=== PATIENT | female | born 1965 | race African-American/Black ===

== ENCOUNTER 2016-02-27 08:30 | Emergency (ER) | payer MEDICARE ==
[2016-02-27 09:13] LABS: #Basophils 0.2 thou/uL (0.0-0.2); #Eosinphils 0.5 thou/uL (0.0-0.7); #Lymphocytes 2.8 thou/uL (1.20-3.40); %Basophils 1.4 % (0.0-1.0); %Eosinophils 4.1 % (0.0-10.0); %Lymphocytes 22.4 % (21.0-51.0); %Monocytes 7.8 % (0.0-10.0); Hematocrit 47.3 % (36.0-47.0); Mean Platelet Volume 6.9 fL (7.4-10.4); Red Blood Cell (RBC) Count 4.75 mill/uL (4.20-5.40); White Blood Cell (WBC) Count 12.5 thou/uL (4.8-10.8)
[2016-02-27 09:35] LABS: Troponin I 0.025 ng/mL (< 0.028)
[2016-02-27 09:47] LABS: Prothrombin Time 17.7 SEC (12.0-14.7)
[2016-02-27 09:53] LABS: ALT (SGPT) 36 U/L (0-55); AST (SGOT) 35 U/L (5-34); Alkaline Phosphatase 59 U/L (40-150); Anion Gap 17 mmol/L (10-20); BUN (Urea Nitrogen) 13 mg/dL (9.8-20.1); Bilirubin, Total 0.6 mg/dL (0.2-1.2); Calc. Creatinine Clearance 0 mL/min (70-130); Calcium 10.3 mg/dL (7.8-10.44); Carbon Dioxide 25 mmol/L (22-29); Chloride 102 mmol/L (98-107); Estimated GFR-MDRD Greater than 90; Globulin 3.5 g/dL (2.4-3.5); Magnesium 2.1 mg/dL (1.6-2.6); Protein, Total 7.8 g/dL (6.0-8.3)
[2016-02-27 09:56] LABS: Digoxin 1.38 ng/mL (0.8-2.0)
--- NOTE | 2016-02-27 10:00 | RAD ---
PORTABLE AP CHEST XRAY: DATE: 02/27/16. HISTORY: Cough. FINDINGS: Compared to the study on 02/15/16. Multilead left subclavian AICD device remains in place. Postsurgical changes related to median ster notomy and cardiac valve replacement are noted. Cardiac silhouette remains enlarged and there is rodriguez boptimal evaluation of the left lung base due to enlargement of the cardiac silhouette and under-pen etrated technique of the study. Pulmonary vasculature is within normal limits and the visualized shaye ngs are clear. There has been no interval change from the prior exam. IMPRESSION: 1. Suboptimal evaluation of the left lung base, but there is no definite acute cardiopulmonary proc ess identified. 2. Cardiomegaly. POS: DAMI
[2016-02-27] MEDS ORDERED: cefTRIAXone\\ROCEPHIN 1 GM VIAL ONE (10:51)
--- NOTE | 2016-02-27 10:51 | ERRECORD ---
[facility] EMERGENCY RECORD HPI COUGH (08:45 SHAN) CHIEF COMPLAINT: Patient presents for evaluation of cough. HISTORIAN: History provided by patient, States was in ER around [place] with similar problem. Has gotten worse. LOCATION: also with vague chest pain. SEVERITY: Maximum severity of symptoms moderate, Currently symptoms are moderate. ASSOCIATED WITH: Associated with chest pain. EXACERBATED BY: Patient's condition exacerbated by deep breaths. RELIEVED BY: Patient's condition relieved by nothing. ROS (08:47 SHAN) CONSTITUTIONAL: Negative constitutional review of systems. EYES: Negative eye review of systems. ENT: Negative ears, nose, throat review of systems. CARDIOVASCULAR: Historian reports chest pain, More related to respiratory infection per patient. RESPIRATORY: Historian reports cough. GI: Negative gastrointestinal review of systems. MUSCULOSKELETAL: Negative musculoskeletal review of systems. SKIN: Negative skin review of systems. NEUROLOGIC: Negative neurologic review of systems. ENDOCRINE: Negative endocrine review of systems. NOTES: All systems reviewed, negative except as described above. PAST MEDICAL HISTORY MEDICAL HISTORY: Flu vaccine up to date, Past medical history includes history of diabetes, Type II, Past medical history includes history of hyperlipidemia, history of hypertension. Flu vaccine up to date, , Past medical history includes cardiac history, treated with an AICD, Past medical history includes cardiac history, coronary artery disease, Treated with a pacemaker,includes history of diabetes, Type II, history of hypertension, which has been treated, pulmonary disease, emphysema, COPD, includes cardiac history, congestive heart failure, arrhythmia, atrial fibrillation, Treated with stent placement. cardiac cath in september 2014. mitral and aortic valve replacement. rheumatic fever when pt was 12 years old. "frozen shoulder"-right. (08:48 IHAC) Notes: tank terminal gauger copd, s/p two heart valve replacements. (08:49 SHAN) FEMALE SURGICAL HISTORY: states had pacemaker placed in june 2013,., Surgical history of valve replacement, aortic with artificial valve, of coronary artery bypass graft surgery, one vessel, Date of surgery 1997, of appendectomy.. (08:48 IHAC) s/p aortic and mitral valve replacements; has pacemaker/defibrillator. (08:49 SHAN) PSYCHIATRIC HISTORY: Psychiatric history includes, anxiety, Psychiatric history includes, depression. (08:48 IHAC) &a-1R&a+25V*p+0X*[id number]*c202B*c15G*c2P*p-0X&a-25V&a+1R Name: Ana Hickman : 1965 F51 MedRec: [id number] AcctNum: [id number] Prepared: Lizzy Feb 27, 2016 18:26 by Interface Page 1 of 4 pMD [facility] EMERGENCY RECORD SOCIAL HISTORY: Patient denies alcohol use, Patient has no smoking history, Lives at home, alone, Patient drinks socially, rarely, Patient is a former tobacco user, smoked cigarettes, Patient quit smoking less than 10 years ago. Patient denies drug use. (08:48 IHAC) NOTES: Nursing records reviewed, Agree with nursing records. (08:49 [facility]) KNOWN ALLERGIES pneumococcal 23-valent polysacchari (Unconfirmed) pneumococcal vaccine (Unconfirmed) tetanus immune globulin: - swelling traMADol: Severity: Mild, - "GETS SICK" trazodone (Unconfirmed) CURRENT MEDICATIONS (08:43 IHAC) Mucinex: TABLET,EXTENDED RELEASE BIPHASIC 12 HR : Strength - 600 mg : ORAL Patient Dose: 1 tab(s) Oral 2 times a day. levothyroxine: TABLET : Strength - 25 mcg : ORAL Patient Dose: 1 tab(s) Oral once a day. simvastatin: TABLET : Strength - 40 mg : ORAL Patient Dose: 1 tab(s) Oral once a day (at bedtime). furosemide: TABLET : Strength - 40 mg : ORAL Patient Dose: 1 tab(s) Oral once a day. digoxin: TABLET : Strength - 250 mcg : ORAL Patient Dose: 1 tab(s) Oral once a day. warfarin: TABLET : Strength - 5 mg : ORAL Patient Dose: Oral.1 TAB DAILY, EXCEPT WED/ 1.5 TABS. metFORMIN: TABLET : Strength - 500 mg : ORAL Patient Dose: 2 tab(s) Oral 2 times a day. aspirin: TABLET, DELAYED RELEASE (ENTERIC COATED) : Strength - 81 mg : ORAL Patient Dose: 1 tab(s) Oral once a day. albuterol sulfate: VIAL, NEBULIZER (ML) : Strength - 2.5 mg/3 mL (0.083 %) : INHALATION Patient Dose: 1 inhalation Nebulize every 8 hours. potassium chloride: CAPSULE, EXTENDED RELEASE : Strength - 10 mEq : ORAL Patient Dose: 2 tab(s) Oral once a day. lisinopril: TABLET : Strength - 5 mg : ORAL Patient Dose: 1 tab(s) Oral once a day. &a-1R&a+25V*p+0X*[id number]*c202B*c15G*c2P*p-0X&a-25V&a+1R Name: Ana Hickman : 1965 F51 MedRec: [id number] AcctNum: [id number] Prepared: [facility] Feb 27, 2016 18:26 by Interface Page 2 of 4 pMD [facility] EMERGENCY RECORD Symbicort: HFA AEROSOL WITH ADAPTER (GRAM) : Strength - 160 mcg-4.5 mcg/actuation : INHALATION Patient Dose: 2 puff(s) Inhaler 2 times a day. gabapentin: CAPSULE : Strength - 300 mg : ORAL Patient Dose: 1-3 cap(s) Oral once a day (at bedtime).prn. FE C Plus: TABLET : Strength - 100 mg-250 mg-25 mcg-1 mg : ORAL Patient Dose: 1 tab(s) Oral once a day. predniSONE: TABLET : Strength - 20 mg : ORAL Patient Dose: 2 tab(s) Oral once a day (in the morning). VITAL SIGNS VITAL SIGNS: BP: 128/79, Pulse: 94, Resp: 24, Temp: 98.5 (Oral), Pain: 2, O2 sat: 95 on Room Air, Time: 02/27/2016 08:35. (08:35 IHAC) BP: 129/79, Pulse: 94, O2 sat: 96, Time: 02/27/2016 09:00. (09:00 BDON) BP: 106/86, Pulse: 84, Pain: 2, O2 sat: 97, Time: 02/27/2016 09:30. (09:30 BDON) BP: 119/67, Pulse: 96, O2 sat: 97, Time: 02/27/2016 10:30. (10:30 BDON) BP: 100/45, Pulse: 90, O2 sat: 93, Time: 02/27/2016 11:27. (11:27 BDON) PHYSICAL EXAM (08:48 SHAN) CONSTITUTIONAL: Vital Signs Reviewed. EYES: Eye exam included findings of eyelids normal to inspection, Pupils equally round and reactive to light, Extraocular muscles intact. ENT: ENT exam normal. NECK: Neck exam normal, Neck exam included findings of normal range of motion, Trachea midline. RESPIRATORY CHEST: Wheezing present, scattered, Rhonchi present, diffusely. CARDIOVASCULAR: Cardiovascular exam included findings of heart rate regular rate and rhythm, Defibrillator in Place, has had aortic and mitral valves replaced as a teenager. ABDOMEN FEMALE: Abdominal exam normal. BACK: Back exam normal. UPPER EXTREMITY: Upper extremity exam normal. NEURO: Neuro exam normal. SKIN: Skin exam normal. PSYCHIATRIC: Psychiatric exam normal. MEDICATION ADMINISTRATION SUMMARY Drug Name: Rocephin intravenous, Dose Ordered: 1 g, Route: IV Push, Status: Given, Time: 10:59 02/27/2016, Drug Name: albuterol sulfate inhalation, Dose Ordered: 2.5 mg, Route: Nebulize, Status: Given, Time: 08:54 02/27/2016, Drug Name: ipratropium 0.5 mg by nebulizer, Dose Ordered: * , Route: &a-1R&a+25V*p+0X*[id number]*c202B*c15G*c2P*p-0X&a-25V&a+1R Name: Ana Hickman : 1965 F51 MedRec: [id number] AcctNum: [id number] Prepared: [facility] Feb 27, 2016 18:26 by Interface Page 3 of 4 pMD [facility] EMERGENCY RECORD Nebulize, Status: Given, Time: 08:54 02/27/2016, Detailed record available in Medication Service section. DOCTOR NOTES (10:37 SHAN) TEXT: Patient requested admission; discussed with pcp; he didn't feel there were enough issues for justifications yet. Discussed details with patient and will adjust meds, refills, and antibiotics. Lung sounds much better with treatment. PATIENT STATUS: Patient has improved since arrival to emergency department. PATIENT PLAN: The patient will be discharged, The patient will follow up with primary care physician. DATA REVIEWED: Lab data reviewed, Xray data reviewed, Reviewed EKG. PROBLEM LIST No recorded problems DIAGNOSIS (10:40 SHAN) FINAL: PRIMARY: copd exacerbation, ADDITIONAL: chronic coumadin therapy, hx of aortic and mitral valve replacement. PRESCRIPTION Levaquin oral: TABLET : 500 mg : ORAL : Quantity: 1 Unit: tab(s) Route: ORAL Schedule: ONCE Dispense: 10 Unit: tab(s) May substitute. Refills: No Refills POTENTIAL SEVERE INTERACTION: warfarin. (10:42 SHAN) NOTES: No Refills. (10:42 SHAN) albuterol sulfate inhalation: VIAL, NEBULIZER (EA) : 2.5 mg/0.5 mL : INHALATION : Quantity: 1 Unit: amp(s) Route: INHALATION Schedule: 4 times a day Dispense: 120 Unit: amp(s) May substitute. Refills: No Refills . (10:43 SHAN) NOTES: No Refills. (10:43 SHAN) ipratropium bromide inhalation: SOLUTION, NON-ORAL : 0.2 mg/mL (0.02 %) : INHALATION : Quantity: 0.5 Unit: mg Route: INHALATION Schedule: 4 times a day Dispense: 120 Unit: amp(s) May substitute. Refills: No Refills . (10:44 SHAN) NOTES: No Refills. (10:44 SHAN) DISPOSITION PATIENT: Disposition Type: Discharge, Disposition: *Discharge Home. (10:40 EMELIA) Patient left the department. (11:42 DIANA) Ramirez: DIANA=FILEMON Oliveira, Monserrat KOVACS=Dafne Rogers=MD Brandon, Brayan &a-1R&a+25V*p+0X*[id number]*c202B*c15G*c2P*p-0X&a-25V&a+1R Name: Ana Hickman Emerita : 1965 F51 MedRec: [id number] AcctNum: [id number] Prepared: Lizzy Feb 27, 2016 18:26 by Interface Page 4 of 4 pMD MTDD
--- NOTE | 2016-02-27 10:51 | PICIS ---
[facility] EMERGENCY RECORD TRIAGE (08:39 IHAC) TRIAGE NOTES: C/O RESP.DIFF AND CHEST DISCOMFORT. (08:39 IHAC) PATIENT: NAME: Ana Hickman, AGE: 51, GENDER: female, : Sat 1965, TIME OF GREET: Lizzy Feb 27, 2016 08:31, PREFERRED LANGUAGE: Lithuanian, ETHNICITY: Not or , ECODE BILLING MAP: [facility], SSN: [id number], Zip Code: [address], KG WEIGHT: 100.70, PHONE: , , , PERSON ID: [id number], PCP: MD Lovett Jacques. (08:39 IHAC) COMPLAINT: COUGH,VOMITING,FEVER,CHEST PAIN. (08:39 IHAC) ADMISSION: URGENCY: 2 Emergent, ADMISSION SOURCE: Home, TRANSPORT: CAR, BED: ER -02. (08:39 IHAC) ASSESSMENT: Assessment: c/o diff. breathing and chest discomfort, Symptoms began few days ago. (08:48 IHAC) PAIN: Patient complains of pain described as, aching, Location chest, Pain is intermittent, Aggravating factors:, Aggravating factors include weather. (08:48 IHAC) SIRS SCORING: Heart Rate 55-109 (0), Temp range 96.8-101.1 (0), respiratory rate 12-24 (0), Mental Status altered: no (0). (08:48 IHAC) PROVIDERS: TRIAGE NURSE: Dafne Rogers. (08:39 IHAC) VITAL SIGNS: BP 128/79, Pulse 94, Resp 24, Temp 98.5, (Oral), Pain 2, O2 Sat 95, on Room Air, Time 02/27/2016 08:35. (08:35 IHAC) PREVIOUS VISIT ALLERGIES: tetanus immune globulin, traMADol. (08:39 IHAC) tetanus immune globulin, traMADol. (08:48 IHAC) KNOWN ALLERGIES pneumococcal 23-valent polysacchari (Unconfirmed) pneumococcal vaccine (Unconfirmed) tetanus immune globulin: - swelling traMADol: Severity: Mild, - "GETS SICK" trazodone (Unconfirmed) CURRENT MEDICATIONS (08:43 IHAC) Mucinex: TABLET,EXTENDED RELEASE BIPHASIC 12 HR : Strength - 600 mg : ORAL Patient Dose: 1 tab(s) Oral 2 times a day. levothyroxine: TABLET : Strength - 25 mcg : ORAL Patient Dose: 1 tab(s) Oral once a day. simvastatin: TABLET : Strength - 40 mg : ORAL Patient Dose: 1 tab(s) Oral once a day (at bedtime). furosemide: TABLET : Strength - 40 mg : ORAL Patient Dose: 1 tab(s) Oral once a day. digoxin: &a-1R&a+25V*p+0X*z5597K*c202B*c15G*c2P*p-0X&a-25V&a+1R Name: Ana Hickman : 1965 F51 MedRec: [id number] AcctNum: [id number] Prepared: [facility] Feb 27, 2016 18:32 by Interface Page 1 of 15 pMD [facility] EMERGENCY RECORD TABLET : Strength - 250 mcg : ORAL Patient Dose: 1 tab(s) Oral once a day. warfarin: TABLET : Strength - 5 mg : ORAL Patient Dose: Oral.1 TAB DAILY, EXCEPT / 1.5 TABS. metFORMIN: TABLET : Strength - 500 mg : ORAL Patient Dose: 2 tab(s) Oral 2 times a day. aspirin: TABLET, DELAYED RELEASE (ENTERIC COATED) : Strength - 81 mg : ORAL Patient Dose: 1 tab(s) Oral once a day. albuterol sulfate: VIAL, NEBULIZER (ML) : Strength - 2.5 mg/3 mL (0.083 %) : INHALATION Patient Dose: 1 inhalation Nebulize every 8 hours. potassium chloride: CAPSULE, EXTENDED RELEASE : Strength - 10 mEq : ORAL Patient Dose: 2 tab(s) Oral once a day. lisinopril: TABLET : Strength - 5 mg : ORAL Patient Dose: 1 tab(s) Oral once a day. Symbicort: HFA AEROSOL WITH ADAPTER (GRAM) : Strength - 160 mcg-4.5 mcg/actuation : INHALATION Patient Dose: 2 puff(s) Inhaler 2 times a day. gabapentin: CAPSULE : Strength - 300 mg : ORAL Patient Dose: 1-3 cap(s) Oral once a day (at bedtime).prn. FE C Plus: TABLET : Strength - 100 mg-250 mg-25 mcg-1 mg : ORAL Patient Dose: 1 tab(s) Oral once a day. predniSONE: TABLET : Strength - 20 mg : ORAL Patient Dose: 2 tab(s) Oral once a day (in the morning). VITAL SIGNS VITAL SIGNS: BP: 128/79, Pulse: 94, Resp: 24, Temp: 98.5 (Oral), Pain: 2, O2 sat: 95 on Room Air, Time: 02/27/2016 08:35. (08:35 IHAC) BP: 129/79, Pulse: 94, O2 sat: 96, Time: 02/27/2016 09:00. (09:00 BDON) BP: 106/86, Pulse: 84, Pain: 2, O2 sat: 97, Time: 02/27/2016 09:30. (09:30 BDON) BP: 119/67, Pulse: 96, O2 sat: 97, Time: 02/27/2016 10:30. (10:30 BDON) BP: 100/45, Pulse: 90, O2 sat: 93, Time: 02/27/2016 11:27. (11:27 BDON) NURSING ASSESSMENT: RESPIRATORY /CHEST (08:40 IHAC) CONSTITUTIONAL: Complex assessment performed, Patient arrives ambulatory, Gait steady, History obtained from patient, Patient appears, anxious, Patient cooperative, Patient alert, Oriented to person, place and time, Skin warm, Skin dry, Skin normal in color, Mucous membranes pink, Mucous membranes moist, Patient is &a-1R&a+25V*p+0X*s5385N*c202B*c15G*c2P*p-0X&a-25V&a+1R Name: Ana Hickman : 1965 F51 MedRec: [id number] AcctNum: [id number] Prepared: Lizzy Feb 27, 2016 18:32 by Interface Page 2 of 15 pMD [facility] EMERGENCY RECORD well-groomed, Patient complains of RESP.DIFF. CHEST DISCOMFORT. PAIN: aching pain, midsternal, on a scale 0-10 patient rates pain as 2, WORST WHEN COUGHING, Pain exacerbated by. RESPIRATORY/CHEST: Lungs auscultated, Breath sounds with rales, to bilateral upper lobes. SAFETY: Side rails up, Cart/Stretcher in lowest position, Family at bedside, Call light within reach, Hospital ID band on. NURSING PROCEDURE: BEDSIDE RADIOLOGY (:47 CCRI) BEDSIDE RADIOLOGY: Bedside radiology performed by CC, Portable chest x-ray performed. NURSING PROCEDURE: DISCHARGE NOTE (11:38 BDON) DISCHARGE: Patient discharged to home, ambulating without assistance, Summary of Care printed/ provided, Patient requested and was provided an electronic copy of Discharge Instructions, Transition record given to patient, Discharge instructions given to patient, Simple or moderate discharge teaching performed, Prescriptions given and instructions on side effects given, Medication reconciliation form given, Above person(s) verbalized understanding of discharge instructions and follow-up care, Patient treated and evaluated by physician, Notes: no reaction to IV antiabiotic. NURSING PROCEDURE: EKG CHART (:47 MSPE) EKG: EKG indicated for complaint of chest pain, EKG indicated for cough, 12 lead EKG performed on the left chest. FOLLOW-UP: After procedure, EKG for interpretation given to Dr. Taylor. NURSING PROCEDURE: IV PATIENT IDENITIFIER: Patient actively involved in identification process, Patient's identity verified by patient stating name, Patient's identity verified by patient stating date. (09:09 IHAC) Patient actively involved in identification process. (09:05 BDON) IV SITE 1: IV established, Saline lock established, Notes: 22G IV. ACCESSED TO RIGHT ANT. F/A X1 ATTEMPT BY MARGI COLBERT. (09:09 IHAC) IV therapy indicated for hydration, IV therapy indicated for medication administration, IV established, to the right wrist, using a 22 gauge catheter, in one attempt, Labs drawn at time of placement, labeled in the presence of the patient and sent to lab, Blood cultures drawn at time of placement, labeled in the presence of the patient and sent to lab. (09:05 BDON) FOLLOW-UP SITE 1: After procedure, IV secured by. (09:09 IHAC) IV discontinued, due to patient being discharged, catheter intact. (11:36 BDON) SAFETY: Side rails up, Cart/Stretcher in lowest position, Family at bedside, Call light within reach, Hospital ID band on. (09:09 &a-1R&a+25V*p+0X*u9456J*c202B*c15G*c2P*p-0X&a-25V&a+1R Name: Ana Hickman : 1965 F51 MedRec: [id number] AcctNum: [id number] Prepared: [facility] Feb 27, 2016 18:32 by Interface Page 3 of 15 pMD [facility] EMERGENCY RECORD IHAC) NURSING PROCEDURE: LAB DRAW (09:10 IHAC) PATIENT IDENTIFIER: Patient actively involved in identification process, Patient's identity verified by patient stating name, Patient's identity verified by patient stating date. LAB DRAW: Lab draw indicated for obtaining specimens for evaluation, Initial lab draw performed, Notes: LAB DRAWN PER MARGI COLBERT. NURSING PROCEDURE: NURSE NOTES NURSES NOTES: Assistance offered to patient, Warm blanket given to patient. (09:00 BDON) Assistance offered to patient. (10:35 BDON) Assistance offered to patient, Notes: Aware that Dr. John does not want her to be admitted. (10:52 BDON) NURSING PROCEDURE: RESPIRATORY INTERVENTIONS (08:54 IHAC) PATIENT IDENTIFIER: Patient actively involved in identification process, Patient's identity verified by patient stating name, Patient's identity verified by patient stating date. RESPIRATORY INTERVENTIONS: Respiratory interventions indicated for sputum collection, Pre-intervention breath sounds with rales, to bilateral lower lobes, Pre-intervention breath sounds with wheezing, audibly, Pre-intervention oxygen saturation 96%, Patient given ALBUTEROL, 1, Single dose nebulizer, Dose: DUONEB. FOLLOW-UP: After procedure, oxygen saturation 96%, on room air, After procedure, breath sounds diminished. SAFETY: Side rails up, Cart/Stretcher in lowest position, Family at bedside, Call light within reach, Hospital ID band on. ORDER DETAILS Order Name: B type Natriuretic Peptide, Status: Active, Time: 08:43 02/27/2016, User: EMELIA, - Ordered for: MD Taylor Stanley, - Entered by: MD Taylor Stanley - [facility] Feb 27, 2016 08:43, - Quantity: 1, Order Name: CHURN DRILLER ED, Status: Done, Time: 08:49 02/27/2016, User: REG, - Ordered for: MD Taylor Stanley, - Entered by: MD Taylor Stanley - [facility] Feb 27, 2016 08:43, - Quantity: 1, Order Name: Cardiac Profile w/CKMB & Troponin - I, Status: Active, Time: 08:43 02/27/2016, User: EMELIA, - Ordered for: MD Taylor Stanley, - Entered by: MD Taylor Stanley - [facility] Feb 27, 2016 08:43, - Quantity: 1, Order Name: CBC with Differential, Status: Active, Time: 08:43 &a-1R&a+25V*p+0X*r5350F*c202B*c15G*c2P*p-0X&a-25V&a+1R Name: Ana Hickman : 1965 F51 MedRec: [id number] AcctNum: [id number] Prepared: WedFeb 27, 2016 18:32 by Interface Page 4 of 15 pMD [facility] EMERGENCY RECORD 02/27/2016, User: EMELIA, - Ordered for: MD Taylor Stanley, - Entered by: MD Taylor Stanley - [facility] Feb 27, 2016 08:43, - Quantity: 1, Order Name: Comprehensive Metabolic Panel, Status: Active, Time: 08:43 02/27/2016, User: EMELIA, - Ordered for: MD Taylor Stanley, - Entered by: MD Taylor Stanley - [facility] Feb 27, 2016 08:43, - Quantity: 1, Order Name: Culture & GS, Respiratory, Status: Active, Time: 08:57 02/27/2016, User: EMELIA, - Ordered for: MD Taylor Stanley, - Entered by: MD Taylor Stanley - [facility] Feb 27, 2016 08:57, - Quantity: 1, Order Name: Culture, Blood, Status: Active, Time: 08:55 02/27/2016, User: EMELIA, - Ordered for: MD Taylor Stanley, - Entered by: MD Taylor Stanley - [facility] Feb 27, 2016 08:55, - Quantity: 1, Order Name: Digoxin, Status: Active, Time: 08:57 02/27/2016, User: EMELIA, - Ordered for: MD Taylor Stanley, - Entered by: MD Taylor Stanley - [facility] Feb 27, 2016 08:57, - Quantity: 1, Order Name: EKG 12 Lead in Emergency Room, Status: Active, Time: 08:43 02/27/2016, User: EMELIA, - Ordered for: MD Taylor Stanley, - Entered by: MD Taylor Stanley - [facility] Feb 27, 2016 08:43, - Quantity: 1, Order Name: ERRT * Smal Vol Neb Initial Trmt, Status: Active, Time: 09:29 02/27/2016, User: IHAC, - Ordered for: MD Taylor Stanley, - Entered by: Dafne Rogers - [facility] Feb 27, 2016 09:29, - Quantity: 1, Order Name: ERRT Pulse Oximeter ER, Status: Active, Time: 08:43 02/27/2016, User: EMELIA, - Ordered for: MD Taylor Stanley, - Entered by: MD Taylor Stanley - [facility] Feb 27, 2016 08:43, - Quantity: 1, Order Name: Magnesium, Status: Active, Time: 08:58 02/27/2016, User: EMELIA, - Ordered for: MD Taylor Stanley, - Entered by: MD Taylor Stanley - [facility] Feb 27, 2016 08:58, - Quantity: 1, Order Name: Protime with INR, Status: Active, Time: 08:43 02/27/2016, User: EMELIA, - Ordered for: MD Taylor Stanley, - Entered by: MD Taylor Stanley - [facility] Feb 27, 2016 08:43, - Quantity: 1, Order Name: SALINE LOCK, Status: Done, Time: 09:09 02/27/2016, User: &a-1R&a+25V*p+0X*v0036C*c202B*c15G*c2P*p-0X&a-25V&a+1R Name: Ana Hickman : 1965 F51 MedRec: [id number] AcctNum: [id number] Prepared: WedFeb 27, 2016 18:32 by Interface Page 5 of 15 pMD [facility] EMERGENCY RECORD BDON, - Ordered for: MD Taylor Stanley, - Entered by: MD Taylor Stanley - [facility] Feb 27, 2016 08:43, - Quantity: 1, Order Name: Urine Microscopic ONLY, Status: Active, Time: 09:18 02/27/2016, User: EMELIA, - Ordered for: MD Taylor Stanley, - Entered by: MD Taylor Stanley [facility] Feb 27, 2016 09:18, - Quantity: 1, Order Name: XR Chest 1 View Portable, Status: Active, Time: 08:43 02/27/2016, User: EMELIA, - Ordered for: MD Taylor Stanley, - Entered by: MD Taylor Stanley [facility] Feb 27, 2016 08:43, - Quantity: 1. MEDICATION ADMINISTRATION SUMMARY Drug Name: Rocephin intravenous, Dose Ordered: 1 g, Route: IV Push, Status: Given, Time: 10:59 02/27/2016, Drug Name: albuterol sulfate inhalation, Dose Ordered: 2.5 mg, Route: Nebulize, Status: Given, Time: 08:54 02/27/2016, Drug Name: ipratropium 0.5 mg by nebulizer, Dose Ordered: * , Route: Nebulize, Status: Given, Time: 08:54 02/27/2016, Detailed record available in Medication Service section. MEDICATION SERVICE albuterol sulfate inhalation: Order: albuterol sulfate inhalation (albuterol sulfate) - Dose: 2.5 mg : Nebulize Schedule: Now Ordered by: Brayan Taylor MD Entered by: Brayan Taylor MD [facility] Feb 27, 2016 08:43 , Acknowledged by: Dafne Rogers [facility] Feb 27, 2016 08:49 Documented as given by: Dafne Rogers Lizzy Feb 27, 2016 08:54 Patient, Medication, Dose, Route and Time verified prior to administration. Amount given: 2.5mg, Amount wasted: 0, With oxygen, Correct patient, time, route, dose and medication confirmed prior to administration, Patient advised of actions and side-effects prior to administration, Allergies confirmed and medications reviewed prior to administration, Patient in position of comfort, Side rails up, Cart in lowest position. ipratropium 0.5 mg by nebulizer: Free Text order: ipratropium 0.5 mg by nebulizer : : Nebulize Ordered by: Brayan Taylor MD Entered by: Brayan Taylor MD WedFeb 27, 2016 08:44 , Acknowledged by: Dafne Rogers WedFeb 27, 2016 08:48 Documented as given by: Dafne Rogers WedFeb 27, 2016 08:54 Patient, Medication, Dose, Route and Time verified prior to administration. Amount given: .5, Amount wasted: 0, With oxygen, Correct patient, &a-1R&a+25V*p+0X*y1575V*c202B*c15G*c2P*p-0X&a-25V&a+1R Name: Ana Hickman : 1965 F51 MedRec: [id number] AcctNum: [id number] Prepared: WedFeb 27, 2016 18:32 by Interface Page 6 of 15 pMD [facility] EMERGENCY RECORD time, route, dose and medication confirmed prior to administration, Patient advised of actions and side-effects prior to administration, Allergies confirmed and medications reviewed prior to administration, Patient in position of comfort, Side rails up, Cart in lowest position, Family at bedside. Rocephin intravenous: Order: Rocephin intravenous (ceftriaxone sodium) - Dose: 1 g : IV Push Schedule: Now Ordered by: Brayan Taylor MD Entered by: Brayan Taylor MD WedFeb 27, 2016 10:37 , Acknowledged by: Margi Oliveira RN Lizzy Feb 27, 2016 10:50 Documented as given by: Margi Oliveira RN Lizzy Feb 27, 2016 10:59 Patient, Medication, Dose, Route and Time verified prior to administration. IV SITE #1 IVPB or drip, Catheter placement confirmed via flush prior to administration, IV site without signs or symptoms of infiltration during medication administration, No swelling during administration, No drainage during administration, IV flushed after administration, Correct patient, time, route, dose and medication confirmed prior to administration, Patient advised of actions and side-effects prior to administration, Allergies confirmed and medications reviewed prior to administration. : Follow Up : No signs or symptoms of allergic reaction noted, _IV SITE #1:_, Medication infusion discontinued, on WedFeb 27, 2016 11:23, 25 minutes, . (11:28 BDON) HPI COUGH (08:45 SHAN) CHIEF COMPLAINT: Patient presents for evaluation of cough. HISTORIAN: History provided by patient, States was in ER around [place] with similar problem. Has gotten worse. LOCATION: also with vague chest pain. SEVERITY: Maximum severity of symptoms moderate, Currently symptoms are moderate. ASSOCIATED WITH: Associated with chest pain. EXACERBATED BY: Patient's condition exacerbated by deep breaths. RELIEVED BY: Patient's condition relieved by nothing. ROS (08:47 SHAN) CONSTITUTIONAL: Negative constitutional review of systems. EYES: Negative eye review of systems. ENT: Negative ears, nose, throat review of systems. CARDIOVASCULAR: Historian reports chest pain, More related to respiratory infection per patient. RESPIRATORY: Historian reports cough. GI: Negative gastrointestinal review of systems. MUSCULOSKELETAL: Negative musculoskeletal review of systems. SKIN: Negative skin review of systems. NEUROLOGIC: Negative neurologic review of systems. ENDOCRINE: Negative endocrine review of systems. &a-1R&a+25V*p+0X*i2699F*c202B*c15G*c2P*p-0X&a-25V&a+1R Name: Ana Hickman : 1965 F51 MedRec: [id number] AcctNum: [id number] Prepared: [facility] Feb 27, 2016 18:32 by Interface Page 7 of 15 pMD [facility] EMERGENCY RECORD NOTES: All systems reviewed, negative except as described above. PAST MEDICAL HISTORY MEDICAL HISTORY: Flu vaccine up to date, Past medical history includes history of diabetes, Type II, Past medical history includes history of hyperlipidemia, history of hypertension. Flu vaccine up to date, , Past medical history includes cardiac history, treated with an AICD, Past medical history includes cardiac history, coronary artery disease, Treated with a pacemaker,includes history of diabetes, Type II, history of hypertension, which has been treated, pulmonary disease, emphysema, COPD, includes cardiac history, congestive heart failure, arrhythmia, atrial fibrillation, Treated with stent placement. cardiac cath in september 2014. mitral and aortic valve replacement. rheumatic fever when pt was 12 years old. "frozen shoulder"-right. (08:48 IHAC) Notes: rn long term care copd, s/p two heart valve replacements. (08:49 SHAN) FEMALE SURGICAL HISTORY: states had pacemaker placed in june 2013,., Surgical history of valve replacement, aortic with artificial valve, of coronary artery bypass graft surgery, one vessel, Date of surgery 1997, of appendectomy.. (08:48 IHAC) s/p aortic and mitral valve replacements; has pacemaker/defibrillator. (08:49 SHAN) PSYCHIATRIC HISTORY: Psychiatric history includes, anxiety, Psychiatric history includes, depression. (08:48 IHAC) SOCIAL HISTORY: Patient denies alcohol use, Patient has no smoking history, Lives at home, alone, Patient drinks socially, rarely, Patient is a former tobacco user, smoked cigarettes, Patient quit smoking less than 10 years ago. Patient denies drug use. (08:48 IHAC) NOTES: Nursing records reviewed, Agree with nursing records. (08:49 SHAN) PHYSICAL EXAM (08:48 SHAN) CONSTITUTIONAL: Vital Signs Reviewed. EYES: Eye exam included findings of eyelids normal to inspection, Pupils equally round and reactive to light, Extraocular muscles intact. ENT: ENT exam normal. NECK: Neck exam normal, Neck exam included findings of normal range of motion, Trachea midline. RESPIRATORY CHEST: Wheezing present, scattered, Rhonchi present, diffusely. CARDIOVASCULAR: Cardiovascular exam included findings of heart rate regular rate and rhythm, Defibrillator in Place, has had aortic and mitral valves replaced as a teenager. ABDOMEN FEMALE: Abdominal exam normal. BACK: Back exam normal. UPPER EXTREMITY: Upper extremity exam normal. &a-1R&a+25V*p+0X*n5348P*c202B*c15G*c2P*p-0X&a-25V&a+1R Name: Ana Hickman : 1965 F51 MedRec: [id number] AcctNum: [id number] Prepared: WedFeb 27, 2016 18:32 by Interface Page 8 of 15 pMD [facility] EMERGENCY RECORD NEURO: Neuro exam normal. SKIN: Skin exam normal. PSYCHIATRIC: Psychiatric exam normal. EVENTS TRANSFER: Triage to Emergency Emergency Room -02. (WedFeb 27, 2016 08:39 IHAC) Removed from Emergency Emergency Room -02. (11:42 BDON) DOCTOR NOTES (10:37 SHAN) TEXT: Patient requested admission; discussed with pcp; he didn't feel there were enough issues for justifications yet. Discussed details with patient and will adjust meds, refills, and antibiotics. Lung sounds much better with treatment. PATIENT STATUS: Patient has improved since arrival to emergency department. PATIENT PLAN: The patient will be discharged, The patient will follow up with primary care physician. DATA REVIEWED: Lab data reviewed, Xray data reviewed, Reviewed EKG. PROBLEM LIST No recorded problems DIAGNOSIS (10:40 SHAN) FINAL: PRIMARY: copd exacerbation, ADDITIONAL: chronic coumadin therapy, hx of aortic and mitral valve replacement. DISPOSITION PATIENT: Disposition Type: Discharge, Disposition: *Discharge Home. (:40 SHAN) Patient left the department. (11:42 BDON) INSTRUCTION (:46 SHAN) DISCHARGE: COPD FLARE. FOLLOWUP: MD Bony, Ger[place], [facility], [address] [place] [address], [facility] [address], . SPECIAL: 1. both albuterol and ipratropium for nebulizer four times a day unless clear 2. go to 1 and a half 5 mg Coumadin odd days and 1 of 5 mg Coumadin even days; check protime in one week and again 1 week after; understand that the antibiotic can make the blood thinner with Coumadin, but the INR (Coumadin effect) was lower than ideal 3. antibiotic as directed. PRESCRIPTION Levaquin oral: TABLET : 500 mg : ORAL : Quantity: 1 Unit: tab(s) Route: ORAL Schedule: ONCE Dispense: 10 Unit: tab(s) &a-1R&a+25V*p+0X*u7108R*c202B*c15G*c2P*p-0X&a-25V&a+1R Name: Ana Hickman : 1965 F51 MedRec: [id number] AcctNum: [id number] Prepared: [facility] Feb 27, 2016 18:32 by Interface Page 9 of 15 pMD [facility] EMERGENCY RECORD May substitute. Refills: No Refills POTENTIAL SEVERE INTERACTION: warfarin. (:42 SHAN) NOTES: No Refills. (10:42 SHAN) albuterol sulfate inhalation: VIAL, NEBULIZER (EA) : 2.5 mg/0.5 mL : INHALATION : Quantity: 1 Unit: amp(s) Route: INHALATION Schedule: 4 times a day Dispense: 120 Unit: amp(s) May substitute. Refills: No Refills . (:43 SHAN) NOTES: No Refills. (:43 SHAN) ipratropium bromide inhalation: SOLUTION, NON-ORAL : 0.2 mg/mL (0.02 %) : INHALATION : Quantity: 0.5 Unit: mg Route: INHALATION Schedule: 4 times a day Dispense: 120 Unit: amp(s) May substitute. Refills: No Refills . (:44 SHAN) NOTES: No Refills. (:44 SHAN) IMAGING *EKG: Image captured from scanner. (09:11 MSPE) *DISCHARGE INSTRUCTIONS RECEIPT: Image captured from scanner. (11:39 BDON) Page 2 added. Image captured from scanner. (11:39 BDON) *SUPPLY CHARGE SHEET: Image captured from scanner. (11:40 BDON) ADMIN DIGITAL SIGNATURE: MD Taylor Stanley. (10:48 SHAN) FILEMON Oliveira, [facility]. (11:42 BDON) MD Taylor Stanley. (18:23 SHAN) RESULTS RADIOLOGY: XR Chest 1 View Portable Observe DT: Lizzy Feb 27, 2016 08:44, CXRP PORTABLE AP CHEST XRAY: DATE: 02/27/16. HISTORY: Cough. FINDINGS: Compared to the study on 02/15/16. Multilead left subclavian AICD device remains in place. Postsurgical changes related to median ster notomy and cardiac valve replacement are noted. Cardiac silhouette remains enlarged and there is rodriguez boptimal evaluation of the left lung base due to enlargement of the cardiac silhouette and under-pen etrated technique of the study. Pulmonary vasculature is within normal limits and the visualized shaye ngs are clear. There has been no interval change from the prior exam. &a-1R&a+25V*p+0X*s5190E*c202B*c15G*c2P*p-0X&a-25V&a+1R Name: Ana Hickman Emerita : 1965 F51 MedRec: [id number] AcctNum: [id number] Prepared: WedFeb 27, 2016 18:32 by Interface Page 10 of 15 [facility] EMERGENCY RECORD IMPRESSION: 1. Suboptimal evaluation of the left lung base, but there is no definite acute cardiopulmonary proc ess identified. 2. Cardiomegaly. POS: [facility] . (11:04 SHAN) LABORATORY: CBC with Differential Collection DT: WedFeb 27, 2016 09:07, *White Blood Cell (WBC) Count 12.5 - H thou/uL, Range (4.8-10.8), Red Blood Cell (RBC) Count 4.75 mill/uL, Range (4.20-5.40), Hemoglobin 14.3 g/dL, Range (12.0-16.0), *Hematocrit 47.3 - H %, Range (36.0-47.0), *Mean Corpuscular Volume 99.6 - H fl, Range (81.0-99.0), Mean Corpuscular Hemoglobin 30.1 pg, Range (27.0-31.0), *Mean Corpuscular HGB CONC 30.3 - L g/dL, Range (32.0-36.0), RBC Distribution Width 13.4 %, Range (11.5-14.5), Platelet Count 353 thou/uL, Range (130-400), *Mean Platelet Volume 6.9 - L fL, Range (7.4-10.4), %Neutrophils 64.3 %, Range (42.0-75.0), %Lymphocytes 22.4 %, Range (21.0-51.0), %Monocytes 7.8 %, Range (0.0-10.0), %Eosinophils 4.1 %, Range (0.0-10.0), *%Basophils 1.4 - H %, Range (0.0-1.0), *#Neutrophils 8.0 - H thou/uL, Range (1.40-6.50), #Lymphocytes 2.8 thou/uL, Range (1.20-3.40), *#Monocytes 1.0 - H thou/uL, Range (0.11-0.59), #Eosinphils 0.5 thou/uL, Range (0.0-0.7), #Basophils 0.2 thou/uL, Range (0.0-0.2). (09:16 [facility]) Cardiac Profile w/CKMB & TropI Collection DT: WedFeb 27, 2016 09:07, CKMB 1.6 ng/mL, Range (0-6.6), Troponin I 0.025 ng/mL, Range (< 0.028), Reference Range , 0.00 - 0.028 ng/mL Negative 0.029 - 0.29 ng/mL , Indeterminate Greater or Equal to 0.3 ng/mL Strongly suggests IN , . (09:40 [facility]) B type Natriuretic Peptide Collection DT: WedFeb 27, 2016 09:07, *B type Natriuretic Peptide 161.3 - H pg/mL, Range (0-100). (09:49 [facility]) Digoxin Collection DT: WedFeb 27, 2016 09:33, See comment below , Medical Necessity Digoxin Therapy , Digoxin 1.38 ng/mL, Range (0.8-2.0), Therapeutic Range: 0.8 - 2.0 ng/mL Toxic Range: Greater than 2.0, ng/mL Digoxin therapeutic ranges are valid only if the specimen is , &a-1R&a+25V*p+0X*i6132E*c202B*c15G*c2P*p-0X&a-25V&a+1R Name: Ana Hickman Emerita : 1965 F51 MedRec: [id number] AcctNum: [id number] Prepared: WedFeb 27, 2016 18:32 by Interface Page 11 of 15 pMD [facility] EMERGENCY RECORD drawn 6 to 8 hours after the last dose was administered. . (10:00 [facility]) Magnesium Collection DT: WedFeb 27, 2016 09:07, Magnesium 2.1 mg/dL, Range (1.6-2.6), NOTE: Higher values can be expected in females during menses . (10:00 [facility]) Comprehensive Metabolic Panel Collection DT: WedFeb 27, 2016 09:07, Sodium 140 mmol/L, Range (136-145), Potassium 4.0 mmol/L, Range (3.5-5.1), Chloride 102 mmol/L, Range (98-107), Carbon Dioxide 25 mmol/L, Range (22-29), Anion Gap 17 mmol/L, Range (10-20), BUN (Urea Nitrogen) 13 mg/dL, Range (9.8-20.1), Creatinine 0.78 mg/dL, Range (0.6-1.1), Estimated GFR-MDRD Greater than 90 , Reference Range for Estimated GFR: Greater than 90, mL/min/1.73 m2 NOTE: The MDRD equation has not been validated for use, with the elderly (over 70 years of age), women, patients with, serious comorbid condition or persons with extremes of body size, muscle, mass, or nutritional status. , *Glucose 124 - H mg/dL, Range (70-105), Calcium 10.3 mg/dL, Range (7.8-10.44), Bilirubin, Total 0.6 mg/dL, Range (0.2-1.2), Protein, Total 7.8 g/dL, Range (6.0-8.3), NOTE: Plasma values are generally 0.3 to 0.5 g/dL higher than serum values, due to the presence of fibrinogen. , Albumin 4.3 g/dL, Range (3.5-5.0), Globulin 3.5 g/dL, Range (2.4-3.5), Alb/Glob Ratio 1.2 g/dL, Range (1.2-2.2), Alkaline Phosphatase 59 U/L, Range (40-150), *AST (SGOT) 35 - H U/L, Range (5-34), ALT (SGPT) 36 U/L, Range (0-55). (10:00 [facility]) Protime with INR Collection DT: Lizzy Feb 27, 2016 09:07, See comment below , Anticoagulant? NONE Medical Necessity SUSPECT COAGULOPATHY , *Prothrombin Time 17.7 - H SEC, Range (12.0-14.7), INR-International Normal Ratio 1.5 , ATTENTION: READ CAREFULLY , The, recommended therapeutic ranges for oral anticoagulant treatments are: , , Low Intensity: 1.5 - 2.0 Moderate Intensity: 2.0, - 3.0 High Intensity (1): 2.5 - 3.5 &a-1R&a+25V*p+0X*m0167C*c202B*c15G*c2P*p-0X&a-25V&a+1R Name: Ana Hickman : 1965 F51 MedRec: [id number] AcctNum: [id number] Prepared: WedFeb 27, 2016 18:32 by Interface Page 12 of 15 pMD [facility] EMERGENCY RECORD High, Intensity (2): 3.0 - 4.0 CRITICAL: >, 4.0 . (10:00 [facility]) Digoxin Collection DT: WedFeb 27, 2016 09:33, See comment below , Medical Necessity Digoxin Therapy , Digoxin 1.38 ng/mL, Range (0.8-2.0), Therapeutic Range: 0.8 - 2.0 ng/mL Toxic Range: Greater than 2.0, ng/mL Digoxin therapeutic ranges are valid only if the specimen is , drawn 6 to 8 hours after the last dose was administered. . (10:00 [facility]) Magnesium Collection DT: WedFeb 27, 2016 09:07, Magnesium 2.1 mg/dL, Range (1.6-2.6), NOTE: Higher values can be expected in females during menses . (10:00 [facility]) Comprehensive Metabolic Panel Collection DT: WedFeb 27, 2016 09:07, Sodium 140 mmol/L, Range (136-145), Potassium 4.0 mmol/L, Range (3.5-5.1), Chloride 102 mmol/L, Range (98-107), Carbon Dioxide 25 mmol/L, Range (22-29), Anion Gap 17 mmol/L, Range (10-20), BUN (Urea Nitrogen) 13 mg/dL, Range (9.8-20.1), Creatinine 0.78 mg/dL, Range (0.6-1.1), Estimated GFR-MDRD Greater than 90 , Reference Range for Estimated GFR: Greater than 90, mL/min/1.73 m2 NOTE: The MDRD equation has not been validated for use, with the elderly (over 70 years of age), women, patients with, serious comorbid condition or persons with extremes of body size, muscle, mass, or nutritional status. , *Glucose 124 - H mg/dL, Range (70-105), Calcium 10.3 mg/dL, Range (7.8-10.44), Bilirubin, Total 0.6 mg/dL, Range (0.2-1.2), Protein, Total 7.8 g/dL, Range (6.0-8.3), NOTE: Plasma values are generally 0.3 to 0.5 g/dL higher than serum values, due to the presence of fibrinogen. , Albumin 4.3 g/dL, Range (3.5-5.0), Globulin 3.5 g/dL, Range (2.4-3.5), Alb/Glob Ratio 1.2 g/dL, Range (1.2-2.2), Alkaline Phosphatase 59 U/L, Range (40-150), *AST (SGOT) 35 - H U/L, Range (5-34), ALT (SGPT) 36 U/L, Range (0-55). (10:00 [facility]) Protime with INR Collection DT: WedFeb 27, 2016 09:07, See comment below , Anticoagulant? NONE Medical Necessity SUSPECT COAGULOPATHY , *Prothrombin Time 17.7 - H SEC, Range (12.0-14.7), INR-International Normal Ratio 1.5 , ATTENTION: READ &a-1R&a+25V*p+0X*k2713H*c202B*c15G*c2P*p-0X&a-25V&a+1R Name: Center RidgeMarlene hillrylan Felder : 1965 F51 MedRec: [id number] AcctNum: [id number] Prepared: WedFeb 27, 2016 18:32 by Interface Page 13 of 15 pMD [facility] EMERGENCY RECORD CAREFULLY , The, recommended therapeutic ranges for oral anticoagulant treatments are: , , Low Intensity: 1.5 - 2.0 Moderate Intensity: 2.0, - 3.0 High Intensity (1): 2.5 - 3.5 High, Intensity (2): 3.0 - 4.0 CRITICAL: >, 4.0 . (10:00 [facility]) Digoxin Collection DT: WedFeb 27, 2016 09:33, See comment below , Medical Necessity Digoxin Therapy , Digoxin 1.38 ng/mL, Range (0.8-2.0), Therapeutic Range: 0.8 - 2.0 ng/mL Toxic Range: Greater than 2.0, ng/mL Digoxin therapeutic ranges are valid only if the specimen is , drawn 6 to 8 hours after the last dose was administered. . (10:00 [facility]) Magnesium Collection DT: WedFeb 27, 2016 09:07, Magnesium 2.1 mg/dL, Range (1.6-2.6), NOTE: Higher values can be expected in females during menses . (10:00 [facility]) Comprehensive Metabolic Panel Collection DT: WedFeb 27, 2016 09:07, Sodium 140 mmol/L, Range (136-145), Potassium 4.0 mmol/L, Range (3.5-5.1), Chloride 102 mmol/L, Range (98-107), Carbon Dioxide 25 mmol/L, Range (22-29), Anion Gap 17 mmol/L, Range (10-20), BUN (Urea Nitrogen) 13 mg/dL, Range (9.8-20.1), Creatinine 0.78 mg/dL, Range (0.6-1.1), Estimated GFR-MDRD Greater than 90 , Reference Range for Estimated GFR: Greater than 90, mL/min/1.73 m2 NOTE: The MDRD equation has not been validated for use, with the elderly (over 70 years of age), women, patients with, serious comorbid condition or persons with extremes of body size, muscle, mass, or nutritional status. , *Glucose 124 - H mg/dL, Range (70-105), Calcium 10.3 mg/dL, Range (7.8-10.44), Bilirubin, Total 0.6 mg/dL, Range (0.2-1.2), Protein, Total 7.8 g/dL, Range (6.0-8.3), NOTE: Plasma values are generally 0.3 to 0.5 g/dL higher than serum values, due to the presence of fibrinogen. , &a-1R&a+25V*p+0X*d3778P*c202B*c15G*c2P*p-0X&a-25V&a+1R Name: Ana Hickman Emerita : 1965 F51 MedRec: [id number] AcctNum: [id number] Prepared: WedFeb 27, 2016 18:32 by Interface Page 14 of 15 pMD [facility] EMERGENCY RECORD Albumin 4.3 g/dL, Range (3.5-5.0), Globulin 3.5 g/dL, Range (2.4-3.5), Alb/Glob Ratio 1.2 g/dL, Range (1.2-2.2), Alkaline Phosphatase 59 U/L, Range (40-150), *AST (SGOT) 35 - H U/L, Range (5-34), ALT (SGPT) 36 U/L, Range (0-55). (10:00 [facility]) Protime with INR Collection DT: WedFeb 27, 2016 09:07, See comment below , Anticoagulant? NONE Medical Necessity SUSPECT COAGULOPATHY , *Prothrombin Time 17.7 - H SEC, Range (12.0-14.7), INR-International Normal Ratio 1.5 , ATTENTION: READ CAREFULLY , The, recommended therapeutic ranges for oral anticoagulant treatments are: , , Low Intensity: 1.5 - 2.0 Moderate Intensity: 2.0, - 3.0 High Intensity (1): 2.5 - 3.5 High, Intensity (2): 3.0 - 4.0 CRITICAL: >, 4.0 . (10:00 [facility]) Ramirez: DIANA=FILEMON Oliveira Bettye CCRI=JAZZY Burger [place]e IHAC=Dafne RogersE=FILEMON Roman, Marcela KAPOOR=MD Brandon, Brayan &a-1R&a+25V*p+0X*i1593Z*c202B*c15G*c2P*p-0X&a-25V&a+1R Name: Ana Hickman : 1965 F51 MedRec: [id number] AcctNum: [id number] Prepared: Lizzy Feb 27, 2016 18:32 by Interface Page 15 of 15 pMD MTDD
[2016-02-27] MEDS ORDERED: Sodium Chloride 0.9% 100 ML ONE (10:52)
== END 2016-02-27 11:38 | disposition home or self-care (01) ==
LOC: NAV ERS 08:30
DX: J44.1 Chronic obstructive pulmonary disease with (acute) exacerbation (principal); E11.9 Type 2 diabetes mellitus without complications; E78.5 Hyperlipidemia, unspecified; I48.91 Unspecified atrial fibrillation; J43.9 Emphysema, unspecified; F41.9 Anxiety disorder, unspecified; F32.9 Major depressive disorder, single episode, unspecified; Z79.899 Other long term (current) drug therapy
CPT/HCPCS: 36415; 71010; 80053; 80162; 82553; 83735; 83880; 84484; 85025; 85610; 87040; 87070; 87205; 93005; 94640; 94760; 96365; J0696; J7050; J7620

== ENCOUNTER 2016-02-29 14:04 | Outpatient (CLI) | payer MEDICARE ==
[2016-02-29 20:01] LABS: Prothrombin Time 29.2 SEC (12.0-14.7)
== END 2016-02-29 14:05 | disposition home or self-care (01) ==
LOC: NAV LAB 14:04
PROVIDERS: ATTEND Family Medicine
DX: Z51.81 Encounter for therapeutic drug level monitoring (principal); Z95.2 Presence of prosthetic heart valve; Z79.01 Long term (current) use of anticoagulants
CPT/HCPCS: 85610; 85730

== ENCOUNTER 2016-03-11 12:47 | Outpatient (CLI) | payer MEDICARE | END 2016-03-11 12:48 | disposition home or self-care (01) | LOC: NAV LAB 12:47 | PROVIDERS: ATTEND Family Medicine | DX: Z48.812 Encounter for surgical aftercare following surgery on the circulatory system (principal); Z95.2 Presence of prosthetic heart valve | CPT/HCPCS: 36415; 85610 ==

== ENCOUNTER 2016-03-16 14:39 | Emergency (ER) | payer MEDICARE ==
[2016-03-16] MEDS ORDERED: Lidocaine 1% 20 ML MDV ONE (15:07)
[2016-03-16] MEDS ORDERED: Bacitracin Zinc 1 Packet ONE (16:08)
--- NOTE | 2016-03-16 16:51 | ERRECORD ---
[facility] EMERGENCY RECORD HPI GENERAL (16:35 PMYE) CHIEF COMPLAINT: Patient presents for evaluation of Right Toe injury. HISTORIAN: History provided by patient. MECHANISM OF INJURY: Direct blow. LOCATION: Symptoms are localized, most severe to rt great toe. SEVERITY: Maximum severity of symptoms moderate, Currently symptoms are moderate. TIME COURSE: Sudden onset of symptoms, There has been no change in the patient's symptoms over time. EXACERBATED BY: Patient's condition exacerbated by movement. RELIEVED BY: Patient's condition relieved by nothing. ROS (16:36 PMYE) CONSTITUTIONAL: Negative constitutional review of systems, Historian denies chills, denies fatigue, denies fever. EYES: Negative eye review of systems, Historian denies eye pain, denies eye redness, denies eye discharge. ENT: Negative ears, nose, throat review of systems, Historian denies dysphasia, denies epistaxis, denies otalgia, denies sore throat. CARDIOVASCULAR: Negative cardiovascular review of systems, Historian denies chest pain, denies dyspnea on exertion, denies syncope, denies palpitations. RESPIRATORY: Negative respiratory review of systems, Historian denies cough, denies shortness of breath, denies wheezing. GI: Negative gastrointestinal review of systems, Historian denies abdominal pain, denies constipation, denies diarrhea, denies nausea, denies vomiting. GENITOURINARY FEMALE: Negative genitourinary review of systems, Historian denies dysuria, denies urgency, denies vaginal bleeding, denies vaginal discharge. MUSCULOSKELETAL: Historian denies arthralgias, denies myalgias. toe pain. SKIN: Negative skin review of systems, Historian denies rash, denies skin changes. NEUROLOGIC: Negative neurologic review of systems, Historian denies confusion, denies focal weakness, denies headache. PSYCHIATRIC: Negative psychiatric review of systems. PAST MEDICAL HISTORY (14:48 JPAR) MEDICAL HISTORY: Flu vaccine up to date, Tetanus not up to date, Pneumococcal vaccine not up to date, Flu vaccine up to date, Past medical history includes history of diabetes, Type II, Past medical history includes history of hyperlipidemia, Past medical history includes history of hypertension, Flu vaccine up to date, , Past medical history includes cardiac history, treated with an AICD, Past medical history includes &a-1R&a+25V*p+0X*u0695U*c202B*c15G*c2P*p-0X&a-25V&a+1R Name: Ana Hickman : 1965 F51 MedRec: [id number] AcctNum: [id number] Prepared: WedMar 16, 2016 17:59 by Interface Page [address] [facility] EMERGENCY RECORD cardiac history, coronary artery disease, Treated with a pacemaker,includes history of diabetes, Type II, history of hypertension, which has been treated, pulmonary disease, emphysema, COPD, includes cardiac history, congestive heart failure, arrhythmia, atrial fibrillation, Treated with stent placement. cardiac cath in september 2014. mitral and aortic valve replacement. rheumatic fever when pt was 12 years old. "frozen shoulder"-right. Notes: detention copd, s/p two heart valve replacements. FEMALE SURGICAL HISTORY: states had pacemaker placed in june 2013,., Surgical history of valve replacement, aortic with artificial valve, of coronary artery bypass graft surgery, one vessel, Date of surgery 1997, of appendectomy.. s/p aortic and mitral valve replacements; has pacemaker/defibrillator. PSYCHIATRIC HISTORY: Psychiatric history includes, anxiety, Psychiatric history includes, depression. SOCIAL HISTORY: Patient denies alcohol use, Patient has no smoking history, Lives at home, alone, Patient drinks socially, rarely, Patient is a former tobacco user, smoked cigarettes, Patient quit smoking less than 10 years ago. Patient denies drug use. KNOWN ALLERGIES pneumococcal 23-valent polysacchari (Unconfirmed) pneumococcal vaccine tetanus immune globulin: - swelling traMADol: Severity: Mild, - "GETS SICK" trazodone (Unconfirmed) CURRENT MEDICATIONS (14:46 JPAR) Mucinex: TABLET,EXTENDED RELEASE BIPHASIC 12 HR : Strength - 600 mg : ORAL Patient Dose: 1 tab(s) Oral 2 times a day. levothyroxine: TABLET : Strength - 25 mcg : ORAL Patient Dose: 1 tab(s) Oral once a day. simvastatin: TABLET : Strength - 40 mg : ORAL Patient Dose: 1 tab(s) Oral once a day (at bedtime). furosemide: TABLET : Strength - 40 mg : ORAL Patient Dose: 1 tab(s) Oral once a day. digoxin: TABLET : Strength - 250 mcg : ORAL Patient Dose: 1 tab(s) Oral once a day. warfarin: TABLET : Strength - 5 mg : ORAL Patient Dose: Oral.1 TAB DAILY, EXCEPT / 1.5 TABS. metFORMIN: TABLET : Strength - 500 mg : ORAL Patient Dose: 2 tab(s) Oral 2 times a day. &a-1R&a+25V*p+0X*u9032A*c202B*c15G*c2P*p-0X&a-25V&a+1R Name: Ana Hickman : 1965 F51 MedRec: [id number] AcctNum: [id number] Prepared: WedMar 16, 2016 17:59 by Interface Page [address] [facility] EMERGENCY RECORD aspirin: TABLET, DELAYED RELEASE (ENTERIC COATED) : Strength - 81 mg : ORAL Patient Dose: 1 tab(s) Oral once a day. albuterol sulfate: VIAL, NEBULIZER (ML) : Strength - 2.5 mg/3 mL (0.083 %) : INHALATION Patient Dose: 1 inhalation Nebulize every 8 hours. potassium chloride: CAPSULE, EXTENDED RELEASE : Strength - 10 mEq : ORAL Patient Dose: 2 tab(s) Oral once a day. lisinopril: TABLET : Strength - 5 mg : ORAL Patient Dose: 1 tab(s) Oral once a day. Symbicort: HFA AEROSOL WITH ADAPTER (GRAM) : Strength - 160 mcg-4.5 mcg/actuation : INHALATION Patient Dose: 2 puff(s) Inhaler 2 times a day. gabapentin: CAPSULE : Strength - 300 mg : ORAL Patient Dose: 1-3 cap(s) Oral once a day (at bedtime).prn. FE C Plus: TABLET : Strength - 100 mg-250 mg-25 mcg-1 mg : ORAL Patient Dose: 1 tab(s) Oral once a day. predniSONE: TABLET : Strength - 20 mg : ORAL Patient Dose: 2 tab(s) Oral once a day (in the morning). Levaquin: TABLET : Strength - 500 mg : ORAL Patient Dose: 1 tab(s) Oral ONCE. albuterol sulfate: VIAL, NEBULIZER (EA) : Strength - 2.5 mg/0.5 mL : INHALATION Patient Dose: 1 amp(s) INHALATION 4 times a day. ipratropium bromide: SOLUTION, NON-ORAL : Strength - 0.2 mg/mL (0.02 %) : INHALATION Patient Dose: 0.5 mg INHALATION 4 times a day. VITAL SIGNS VITAL SIGNS: BP: 135/69, Pulse: 96, Resp: 18, Temp: 98.3 (Oral), Pain: 8, O2 sat: 97, Time: 03/16/2016 14:44. (14:44 JPAR) BP: 133/68, Pulse: 84, Resp: 17, Pain: 2, O2 sat: 97 on Room Air, Time: 03/16/2016 16:25. (16:25 JPAR) PHYSICAL EXAM CONSTITUTIONAL: Vital Signs Reviewed, Patient afebrile, Pulse normal, Blood pressure normal, Respiratory rate normal, Patient appears non toxic. (16:36 PMYE) HEAD: Head exam included findings of head atraumatic, normocephalic. (16:36 PMYE) EYES: Eye exam included findings of eyelids normal to inspection, Pupils equally round and reactive to light, Extraocular muscles intact. (16:36 PMYE) &a-1R&a+25V*p+0X*y4295S*c202B*c15G*c2P*p-0X&a-25V&a+1R Name: Ana Hickman : 1965 F51 MedRec: [id number] AcctNum: [id number] Prepared: WedMar 16, 2016 17:59 by Interface Page [address] [facility] EMERGENCY RECORD ENT: ENT exam normal, Pharynx exam normal, Uvula exam normal, Tonsil exam normal. (16:36 PMYE) NECK: Neck exam normal. (16:36 PMYE) RESPIRATORY CHEST: Respiratory and chest exam normal, Breath sounds clear, No wheezing, No rales. (16:36 PMYE) ABDOMEN FEMALE: Abdominal exam normal, Abdominal exam included findings of abdomen nontender, Bowel sounds normal. (16:36 PMYE) BACK: Back exam normal. (16:36 PMYE) LOWER EXTREMITY: Right great toe is partially avulsed from the toe. Nail matrix is partially intact but nail is loose and damaged. (16:38 PMYE) NEURO: Neuro exam normal, Anna Marie coma scale 15, Neuro exam findings include patient oriented to person, place and time, Speech normal. (16:36 PMYE) SKIN: Skin exam normal. (16:36 PMYE) PSYCHIATRIC: Psychiatric exam normal, Psychiatric exam included findings of patient oriented to person place and time, Normal affect. (16:36 PMYE) DOCTOR NOTES TEXT: Digital block preformed and nail of right great toe removed w/out complication. Dressing applied and prn script provided. (16:39 PMYE) Pt provided Mode 5/325 #10 1 po q 4 prn pain. (16:42 PMYE) PROBLEM LIST No recorded problems DIAGNOSIS (16:41 PMYE) FINAL: PRIMARY: nail avulsion. PRESCRIPTION No recorded prescriptions DISPOSITION PATIENT: Disposition Type: Discharge, Disposition: *Discharge Home. (16:41 PMYE) Patient left the department. (16:49 JPSLADE) Ramirez: CESAR=FILEMON Arenas Jason PMYE=DO Peters Paul &a-1R&a+25V*p+0X*i0997O*c202B*c15G*c2P*p-0X&a-25V&a+1R Name: Ana Hickman : 1965 F51 MedRec: [id number] AcctNum: [id number] Prepared: WedMar 16, 2016 17:59 by Interface Page 4 of 4 pMD MTDD
--- NOTE | 2016-03-16 16:57 | PICIS ---
[facility] EMERGENCY RECORD TRIAGE (14:45 JPAR) TRIAGE NOTES: Hit R great toe on furniture at home liften nail off bed. (14:45 JPAR) PATIENT: NAME: Ana Hickman, AGE: 51, GENDER: female, : Sat 1965, TIME OF GREET: WedMar 16, 2016 14:40, PREFERRED LANGUAGE: Frisian, ETHNICITY: Not or , ECODE BILLING MAP: [facility], SSN: [id number], Zip Code: [address], KG WEIGHT: [phone], PHONE: , , , PERSON ID: [id number], PCP: MD Lovett Jacques. (14:45 JPAR) COMPLAINT: RIGHT GREAT TOE PAIN. (14:45 JPAR) ADMISSION: URGENCY: 4 Non Urgent, ADMISSION SOURCE: Home, TRANSPORT: CAR, BED: TRIAGE. (14:45 JPAR) ASSESSMENT: Assessment: R greater toe nail pulled from bed, Symptoms began 30 minutes, Symptoms began 30 min ago. (14:48 JPAR) PAIN: Patient complains of pain described as, aching, burning, on a scale 0-10 patient rates pain as 8. (14:48 JPAR) SIRS SCORING: Heart Rate 55-109 (0), Temp range 96.8-101.1 (0), respiratory rate 12-24 (0), Mental Status altered: no (0), Infection or Suspected Infection: No. (14:48 JPAR) TRIAGE SCREENING: Patient denies suicidal ideation, Patient denies presence of domestic violence. (14:48 JPAR) PROVIDERS: TRIAGE NURSE: Frank Arenas RN. (14:45 JPAR) VITAL SIGNS: BP 135/69, Pulse 96, Resp 18, Temp 98.3, (Oral), Pain 8, O2 Sat 97, Time 03/16/2016 14:44. (14:44 JPAR) PREVIOUS VISIT ALLERGIES: tetanus immune globulin, traMADol. (14:45 JPAR) tetanus immune globulin, traMADol. (14:48 JPAR) KNOWN ALLERGIES pneumococcal 23-valent polysacchari (Unconfirmed) pneumococcal vaccine tetanus immune globulin: - swelling traMADol: Severity: Mild, - "GETS SICK" trazodone (Unconfirmed) CURRENT MEDICATIONS (14:46 JPAR) Mucinex: TABLET,EXTENDED RELEASE BIPHASIC 12 HR : Strength - 600 mg : ORAL Patient Dose: 1 tab(s) Oral 2 times a day. levothyroxine: TABLET : Strength - 25 mcg : ORAL Patient Dose: 1 tab(s) Oral once a day. simvastatin: TABLET : Strength - 40 mg : ORAL Patient Dose: 1 tab(s) Oral once a day (at bedtime). furosemide: TABLET : Strength - 40 mg : ORAL Patient Dose: 1 tab(s) Oral once a day. &a-1R&a+25V*p+0X*[id number]*c202B*c15G*c2P*p-0X&a-25V&a+1R Name: Ana Hickman : 1965 F51 MedRec: [id number] AcctNum: [id number] Prepared: WedMar 16, 2016 18:07 by Interface Page 1 of 7 pMD [facility] EMERGENCY RECORD digoxin: TABLET : Strength - 250 mcg : ORAL Patient Dose: 1 tab(s) Oral once a day. warfarin: TABLET : Strength - 5 mg : ORAL Patient Dose: Oral.1 TAB DAILY, EXCEPT / 1.5 TABS. metFORMIN: TABLET : Strength - 500 mg : ORAL Patient Dose: 2 tab(s) Oral 2 times a day. aspirin: TABLET, DELAYED RELEASE (ENTERIC COATED) : Strength - 81 mg : ORAL Patient Dose: 1 tab(s) Oral once a day. albuterol sulfate: VIAL, NEBULIZER (ML) : Strength - 2.5 mg/3 mL (0.083 %) : INHALATION Patient Dose: 1 inhalation Nebulize every 8 hours. potassium chloride: CAPSULE, EXTENDED RELEASE : Strength - 10 mEq : ORAL Patient Dose: 2 tab(s) Oral once a day. lisinopril: TABLET : Strength - 5 mg : ORAL Patient Dose: 1 tab(s) Oral once a day. Symbicort: HFA AEROSOL WITH ADAPTER (GRAM) : Strength - 160 mcg-4.5 mcg/actuation : INHALATION Patient Dose: 2 puff(s) Inhaler 2 times a day. gabapentin: CAPSULE : Strength - 300 mg : ORAL Patient Dose: 1-3 cap(s) Oral once a day (at bedtime).prn. FE C Plus: TABLET : Strength - 100 mg-250 mg-25 mcg-1 mg : ORAL Patient Dose: 1 tab(s) Oral once a day. predniSONE: TABLET : Strength - 20 mg : ORAL Patient Dose: 2 tab(s) Oral once a day (in the morning). Levaquin: TABLET : Strength - 500 mg : ORAL Patient Dose: 1 tab(s) Oral ONCE. albuterol sulfate: VIAL, NEBULIZER (EA) : Strength - 2.5 mg/0.5 mL : INHALATION Patient Dose: 1 amp(s) INHALATION 4 times a day. ipratropium bromide: SOLUTION, NON-ORAL : Strength - 0.2 mg/mL (0.02 %) : INHALATION Patient Dose: 0.5 mg INHALATION 4 times a day. VITAL SIGNS VITAL SIGNS: BP: 135/69, Pulse: 96, Resp: 18, Temp: 98.3 (Oral), Pain: 8, O2 sat: 97, Time: 03/16/2016 14:44. (14:44 JPAR) BP: 133/68, Pulse: 84, Resp: 17, Pain: 2, O2 sat: 97 on Room Air, Time: 03/16/2016 16:25. (16:25 JPAR) &a-1R&a+25V*p+0X*i4034Z*c202B*c15G*c2P*p-0X&a-25V&a+1R Name: Ana Hickman : 1965 F51 MedRec: [id number] AcctNum: [id number] Prepared: WedMar 16, 2016 18:07 by Interface Page 2 of 7 pMD [facility] EMERGENCY RECORD NURSING ASSESSMENT: EXTREMITY LOWER (14:46 JPAR) CONSTITUTIONAL: Patient arrives ambulatory, Gait steady, History obtained from patient, Patient appears, anxious, in distress due to pain, restless, uncomfortable, Patient cooperative, Patient alert, Oriented to person, place and time, Skin warm, Skin dry, Skin normal in color, Mucous membranes pink, Mucous membranes moist, Patient complains of Hit toe on firniture at home, lifted nail off nail bed. PAIN: aching pain, burning pain, to the first toe on the right foot, on a scale 0-10 patient rates pain as 8. LEFT LOWER EXTREMITY: Left lower extremity assessment findings include capillary refill less than 2 seconds, Skin color normal, Skin temperature warm, Distal sensation intact, Muscle tone normal. RIGHT LOWER EXTREMITY: Right lower extremity assessment findings include capillary refill less than 2 seconds, Skin color normal, Skin temperature warm, Distal sensation intact, Muscle tone normal, Inspection findings include signs of trauma, to R greater Toe, Nail from nail bed, minor bleeding/oozing present. SAFETY: Side rails up, Cart/Stretcher in lowest position, Family at bedside, Call light within reach, Hospital ID band on. NURSING PROCEDURE: DISCHARGE NOTE (16:45 JPAR) DISCHARGE: Patient discharged to home, ambulating without assistance, family driving, accompanied by other family member, Summary of Care printed/ provided, Patient requested and was provided an electronic copy of Discharge Instructions, Transition record given to patient, Discharge instructions given to patient, Simple or moderate discharge teaching performed, Keep elevated, change dressing if wet and reapply pressure dressing as shown with bacitracin ointment put on prior to covering with adaptic., Prescriptions given and instructions on side effects given, Name of prescription(s) given: Labolt 5, Medication reconciliation form given, Above person(s) verbalized understanding of discharge instructions and follow-up care, Patient treated and evaluated by physician. BELONGINGS: Belongings and valuables with patient at time of discharge include:, Belongings remain with patient, Valuables remain with patient. SAFETY: Side rails up, Cart/Stretcher in lowest position, Family at bedside, Call light within reach, Hospital ID band on. NURSING PROCEDURE: NURSE NOTES (15:12 JPAR) NURSES NOTES: Notes: Lac Tray, Betadine, Sterile Saline, 4-0 Ethelon sutures and sterile gloves along with 1% lidocaine at bedside for MD request. NURSING PROCEDURE: WOUND CARE (16:15 JPAR) PATIENT IDENTIFIER: Patient actively involved in identification &a-1R&a+25V*p+0X*g0600Q*c202B*c15G*c2P*p-0X&a-25V&a+1R Name: YoncallaMarlene hillrylan Felder : 1965 F51 MedRec: [id number] AcctNum: [id number] Prepared: WedMar 16, 2016 18:07 by Interface Page 3 of 7 pMD [facility] EMERGENCY RECORD process, Patient's identity verified by patient stating name, Patient's identity verified by patient stating date, Patient's identity verified by hospital ID bracelet, Patient's identity verified by family member. TIMEOUT: Prior to procedure, correct patient verified by, Correct procedure verified, Correct site verified, Correct equipment utilized, Timeout not performed due to emergent nature of procedure, Physician performing procedure Dr. LIVINGSTON. WOUND CARE: Wound care indicated for wound debridement and cleansing, Wound care indicated for preparing wound for repair, Wound care indicated to promote healing, Wound site: R Great Toe, Cause of wound: Hit furniture, ripped nail out of nail bed, Local infiltration with, 1% lidocaine without epinephrine, 5 mL used, Wound irrigated with 1000 mL of normal saline, Wound cleansed with Betadine, Foreign body removed from wound, Nail removed completely, Tetanus status unknown, Notes: Pt allergic to Tetanus Vaccine. FOLLOW-UP: After procedure, complex dressing applied, using adaptic dressing, wrapped with 2 inch ilir, After procedure, on a scale 0-10 patient rates pain as 2, After procedure, capillary refill less than 2 seconds, After procedure, distal circulation intact, After procedure, distal motor intact, After procedure, distal sensation intact, After procedure, distal pulses present. SAFETY: Side rails up, Cart/Stretcher in lowest position, Family at bedside, Call light within reach, Hospital ID band on. ORDER DETAILS Order Name: chart element #1, Status: Active, Time: 16:15 03/16/2016, User: System, - Ordered for: DO Peters Paul, - Entered by: FILEMON Arenas Jason - Milana Mar 16, 2016 16:15, - Quantity: 1, Order Name: chart element #4, Status: Active, Time: 16:15 03/16/2016, User: System, - Ordered for: DO Peters Paul, - Entered by: FILEMON Arenas Jason - Milana Mar 16, 2016 16:15, - Quantity: 1. HPI GENERAL (16:35 PMYE) CHIEF COMPLAINT: Patient presents for evaluation of Right Toe injury. HISTORIAN: History provided by patient. MECHANISM OF INJURY: Direct blow. LOCATION: Symptoms are localized, most severe to rt great toe. SEVERITY: Maximum severity of symptoms moderate, Currently symptoms are moderate. TIME COURSE: Sudden onset of symptoms, There has been no change in the patient's symptoms over time. &a-1R&a+25V*p+0X*g3983G*c202B*c15G*c2P*p-0X&a-25V&a+1R Name: Ana Hickman : 1965 F51 MedRec: [id number] AcctNum: [id number] Prepared: WedMar 16, 2016 18:07 by Interface Page 4 of 7 pMD [facility] EMERGENCY RECORD EXACERBATED BY: Patient's condition exacerbated by movement. RELIEVED BY: Patient's condition relieved by nothing. ROS (16:36 PMYE) CONSTITUTIONAL: Negative constitutional review of systems, Historian denies chills, denies fatigue, denies fever. EYES: Negative eye review of systems, Historian denies eye pain, denies eye redness, denies eye discharge. ENT: Negative ears, nose, throat review of systems, Historian denies dysphasia, denies epistaxis, denies otalgia, denies sore throat. CARDIOVASCULAR: Negative cardiovascular review of systems, Historian denies chest pain, denies dyspnea on exertion, denies syncope, denies palpitations. RESPIRATORY: Negative respiratory review of systems, Historian denies cough, denies shortness of breath, denies wheezing. GI: Negative gastrointestinal review of systems, Historian denies abdominal pain, denies constipation, denies diarrhea, denies nausea, denies vomiting. GENITOURINARY FEMALE: Negative genitourinary review of systems, Historian denies dysuria, denies urgency, denies vaginal bleeding, denies vaginal discharge. MUSCULOSKELETAL: Historian denies arthralgias, denies myalgias. toe pain. SKIN: Negative skin review of systems, Historian denies rash, denies skin changes. NEUROLOGIC: Negative neurologic review of systems, Historian denies confusion, denies focal weakness, denies headache. PSYCHIATRIC: Negative psychiatric review of systems. PAST MEDICAL HISTORY (14:48 JPAR) MEDICAL HISTORY: Flu vaccine up to date, Tetanus not up to date, Pneumococcal vaccine not up to date, Flu vaccine up to date, Past medical history includes history of diabetes, Type II, Past medical history includes history of hyperlipidemia, Past medical history includes history of hypertension, Flu vaccine up to date, , Past medical history includes cardiac history, treated with an AICD, Past medical history includes cardiac history, coronary artery disease, Treated with a pacemaker,includes history of diabetes, Type II, history of hypertension, which has been treated, pulmonary disease, emphysema, COPD, includes cardiac history, congestive heart failure, arrhythmia, atrial fibrillation, Treated with stent placement. cardiac cath in september 2014. mitral and aortic valve replacement. rheumatic fever when pt was 12 years old. "frozen shoulder"-right. Notes: shelter copd, s/p two heart valve replacements. FEMALE SURGICAL HISTORY: states had pacemaker placed in june 2013,., Surgical history of valve replacement, aortic with artificial valve, of coronary artery bypass graft surgery, one vessel, Date of &a-1R&a+25V*p+0X*p0883T*c202B*c15G*c2P*p-0X&a-25V&a+1R Name: Ana Hickman : 1965 F51 MedRec: [id number] AcctNum: [id number] Prepared: WedMar 16, 2016 18:07 by Interface Page 5 of 7 pMD [facility] EMERGENCY RECORD surgery 1997, of appendectomy.. s/p aortic and mitral valve replacements; has pacemaker/defibrillator. PSYCHIATRIC HISTORY: Psychiatric history includes, anxiety, Psychiatric history includes, depression. SOCIAL HISTORY: Patient denies alcohol use, Patient has no smoking history, Lives at home, alone, Patient drinks socially, rarely, Patient is a former tobacco user, smoked cigarettes, Patient quit smoking less than 10 years ago. Patient denies drug use. PHYSICAL EXAM CONSTITUTIONAL: Vital Signs Reviewed, Patient afebrile, Pulse normal, Blood pressure normal, Respiratory rate normal, Patient appears non toxic. (16:36 PMYE) HEAD: Head exam included findings of head atraumatic, normocephalic. (16:36 PMYE) EYES: Eye exam included findings of eyelids normal to inspection, Pupils equally round and reactive to light, Extraocular muscles intact. (16:36 PMYE) ENT: ENT exam normal, Pharynx exam normal, Uvula exam normal, Tonsil exam normal. (16:36 PMYE) NECK: Neck exam normal. (16:36 PMYE) RESPIRATORY CHEST: Respiratory and chest exam normal, Breath sounds clear, No wheezing, No rales. (16:36 PMYE) ABDOMEN FEMALE: Abdominal exam normal, Abdominal exam included findings of abdomen nontender, Bowel sounds normal. (16:36 PMYE) BACK: Back exam normal. (16:36 PMYE) LOWER EXTREMITY: Right great toe is partially avulsed from the toe. Nail matrix is partially intact but nail is loose and damaged. (16:38 PMYE) NEURO: Neuro exam normal, Anna Marie coma scale 15, Neuro exam findings include patient oriented to person, place and time, Speech normal. (16:36 PMYE) SKIN: Skin exam normal. (16:36 PMYE) PSYCHIATRIC: Psychiatric exam normal, Psychiatric exam included findings of patient oriented to person place and time, Normal affect. (16:36 PMYE) EVENTS TRANSFER: Triage to Emergency Triage. (WedMar 16, 2016 14:45 JPAR) Emergency Triage to Emergency Room -05. (14:46 JPAR) Removed from Emergency Emergency Room -05. (16:49 JPAR) DOCTOR NOTES TEXT: Digital block preformed and nail of right great toe removed w/out complication. Dressing applied and prn script provided. (16:39 PMYE) Pt provided Labolt 5/325 #10 1 po q 4 prn pain. (16:42 PMYE) PROBLEM LIST &a-1R&a+25V*p+0X*t8894C*c202B*c15G*c2P*p-0X&a-25V&a+1R Name: Ana Hickman : 1965 F51 MedRec: [id number] AcctNum: [id number] Prepared: WedMar 16, 2016 18:07 by Interface Page 6 of 7 pMD [facility] EMERGENCY RECORD No recorded problems DIAGNOSIS (16:41 PMYE) FINAL: PRIMARY: nail avulsion. DISPOSITION PATIENT: Disposition Type: Discharge, Disposition: *Discharge Home. (16:41 PMYE) Patient left the department. (16:49 JPAR) INSTRUCTION (16:42 PMYE) DISCHARGE: AVULSION NAIL COMPLETE. FOLLOWUP: MD Lovett Jacques, Family Practice, [facility], [address], [facility] [address], , Follow up with Primary Care Physician in 1-2 days. SPECIAL: Follow-up with your PCP. PRESCRIPTION No recorded prescriptions IMAGING [facility]CO RX: Image captured from scanner. (16:44 JPAR) *SUPPLY CHARGE SHEET: Image captured from scanner. (16:47 JPAR) *DISCHARGE INSTRUCTIONS RECEIPT: Image captured from scanner. (16:47 JPAR) ADMIN DIGITAL SIGNATURE: DO Peters Paul. (16:42 PMYE) FILEMON Arenas Jason. (16:49 JPAR) DO Peters Paul. (17:58 PMYE) DO Peters Paul. (17:58 PMYE) Ramirez: CESAR=FILEMON Arenas Jason PMYE=DO Peters Paul &a-1R&a+25V*p+0X*l6570P*c202B*c15G*c2P*p-0X&a-25V&a+1R Name: Ana Hickman : 1965 F51 MedRec: [id number] AcctNum: [id number] Prepared: WedMar 16, 2016 18:07 by Interface Page 7 of 7 pMD [facility]TDD
== END 2016-03-16 16:45 | disposition home or self-care (01) ==
LOC: NAV ERS 14:39
DX: S91.201A Unspecified open wound of right great toe with damage to nail, initial encounter (principal); E11.9 Type 2 diabetes mellitus without complications; E78.5 Hyperlipidemia, unspecified; I10 Essential (primary) hypertension; I25.10 Atherosclerotic heart disease of native coronary artery without angina pectoris; J44.9 Chronic obstructive pulmonary disease, unspecified; I48.91 Unspecified atrial fibrillation; I50.9 Heart failure, unspecified; F41.9 Anxiety disorder, unspecified; F32.9 Major depressive disorder, single episode, unspecified; Z79.899 Other long term (current) drug therapy; Z79.82 Long term (current) use of aspirin; Z79.84 Long term (current) use of oral hypoglycemic drugs; Z87.891 Personal history of nicotine dependence; X58.XXXA Exposure to other specified factors, initial encounter
CPT/HCPCS: 99283; J2001

== ENCOUNTER 2016-03-23 16:25 | Outpatient (CLI) | payer MEDICARE ==
[2016-03-23 16:57] LABS: Prothrombin Time 26.4 SEC (12.0-14.7)
== END 2016-03-23 16:26 | disposition home or self-care (01) ==
LOC: NAV LAB 16:25
PROVIDERS: ATTEND Family Medicine
DX: Z48.812 Encounter for surgical aftercare following surgery on the circulatory system (principal); Z95.2 Presence of prosthetic heart valve
CPT/HCPCS: 85610

== ENCOUNTER 2016-03-28 16:08 | Outpatient (CLI) | payer MEDICARE ==
[2016-03-28 20:21] LABS: Prothrombin Time 25.2 SEC (12.0-14.7)
== END 2016-03-28 16:09 | disposition home or self-care (01) ==
LOC: NAV LAB 16:08
PROVIDERS: ATTEND Family Medicine
DX: Z48.812 Encounter for surgical aftercare following surgery on the circulatory system (principal); Z95.2 Presence of prosthetic heart valve
CPT/HCPCS: 85610

== ENCOUNTER 2016-04-06 08:20 | Outpatient (CLI) | payer MEDICARE ==
[2016-04-06 10:52] LABS: Prothrombin Time 19.1 SEC (12.0-14.7)
== END 2016-04-06 08:21 | disposition home or self-care (01) ==
LOC: NAV LAB 08:20
PROVIDERS: ATTEND Family Medicine
DX: Z48.812 Encounter for surgical aftercare following surgery on the circulatory system (principal); Z95.2 Presence of prosthetic heart valve
CPT/HCPCS: 36415; 85610

== ENCOUNTER 2016-04-18 11:10 | Outpatient (CLI) | payer MEDICARE ==
[2016-04-18 11:38] LABS: Prothrombin Time 24.1 SEC (12.0-14.7)
== END 2016-04-18 11:11 | disposition home or self-care (01) ==
LOC: NAV LAB 11:10
PROVIDERS: ATTEND Family Medicine
DX: Z95.2 Presence of prosthetic heart valve (principal)
CPT/HCPCS: 36415; 85610; 85730

== ENCOUNTER 2016-04-25 18:07 | Outpatient (CLI) | payer MEDICARE ==
[2016-04-25 19:05] LABS: INR-International Normal Ratio 2.2; Prothrombin Time 23.8 SEC (12.0-14.7)
== END 2016-04-25 18:08 | disposition home or self-care (01) ==
LOC: NAV LAB 18:07
PROVIDERS: ATTEND Family Medicine
DX: Z48.812 Encounter for surgical aftercare following surgery on the circulatory system (principal); Z95.2 Presence of prosthetic heart valve
CPT/HCPCS: 85610

== ENCOUNTER 2016-04-29 15:34 | Outpatient (CLI) | payer MEDICARE ==
[2016-04-29 16:15] LABS: Prothrombin Time 22.8 SEC (12.0-14.7)
== END 2016-04-29 15:35 | disposition home or self-care (01) ==
LOC: NAV LAB 15:34
PROVIDERS: ATTEND Family Medicine
DX: Z48.812 Encounter for surgical aftercare following surgery on the circulatory system (principal); Z95.2 Presence of prosthetic heart valve
CPT/HCPCS: 36415; 85610

== ENCOUNTER 2016-05-05 20:10 | Outpatient (CLI) | payer MEDICARE ==
[2016-05-05 21:24] LABS: PTT 37.7 SEC (22.9-36.1); Prothrombin Time 27.9 SEC (12.0-14.7)
== END 2016-05-05 20:11 | disposition home or self-care (01) ==
LOC: NAV LAB 20:10
PROVIDERS: ATTEND Family Medicine
DX: Z48.812 Encounter for surgical aftercare following surgery on the circulatory system (principal); Z95.2 Presence of prosthetic heart valve
CPT/HCPCS: 85610; 85730

== ENCOUNTER 2016-05-14 14:09 | Outpatient (CLI) | payer MEDICARE ==
[2016-05-14 14:37] LABS: INR-International Normal Ratio 1.7; Prothrombin Time 20.8 SEC (12.0-14.7)
== END 2016-05-14 14:10 | disposition home or self-care (01) ==
LOC: NAV LAB 14:09
PROVIDERS: ATTEND Family Medicine
DX: Z48.812 Encounter for surgical aftercare following surgery on the circulatory system (principal); Z95.2 Presence of prosthetic heart valve
CPT/HCPCS: 36415; 85610

== ENCOUNTER 2016-05-21 19:42 | Outpatient (CLI) | payer MEDICARE ==
[2016-05-21 20:30] LABS: INR-International Normal Ratio 2.4; PTT 35.4 SEC (22.9-36.1); Prothrombin Time 26.9 SEC (12.0-14.7)
== END 2016-05-21 19:43 | disposition home or self-care (01) ==
LOC: NAV LAB 19:42
PROVIDERS: ATTEND Family Medicine
DX: Z48.812 Encounter for surgical aftercare following surgery on the circulatory system (principal); Z95.2 Presence of prosthetic heart valve
CPT/HCPCS: 85610; 85730

== ENCOUNTER 2016-05-27 08:00 | Outpatient (CLI) | payer MEDICARE ==
[2016-05-27 08:53] LABS: Prothrombin Time 23.3 SEC (12.0-14.7)
[2016-05-27 08:59] LABS: ALT (SGPT) 37 U/L (0-55); AST (SGOT) 32 U/L (5-34); Albumin 4.4 g/dL (3.5-5.0); Alkaline Phosphatase 70 U/L (40-150); Anion Gap 15 mmol/L (10-20); BUN (Urea Nitrogen) 12 mg/dL (9.8-20.1); Bilirubin, Total 0.4 mg/dL (0.2-1.2); Calc. Creatinine Clearance 0 mL/min (70-130); Calcium 9.9 mg/dL (7.8-10.44); Carbon Dioxide 22 mmol/L (22-29); Cardiac Risk 3.3 (Less than 4.5); Chloride 104 mmol/L (98-107); Cholesterol 193 mg/dL (< 200 Desired); Estimated GFR-MDRD Greater than 90; Globulin 3.7 g/dL (2.4-3.5); Glucose 145 mg/dL (70-105); HDL Cholesterol 58 mg/dL (>60 Neg Risk); LDL Cholesterol, Calculated 122 mg/dL; Potassium 4.1 mmol/L (3.5-5.1); Protein, Total 8.1 g/dL (6.0-8.3); Sodium 137 mmol/L (136-145); Triglycerides 65 mg/dL (Less than 150)
[2016-05-27 09:49] LABS: Free T4 (Free Thyroxine) 0.84 ng/dL (0.70-1.48); Thyroid Stimulating Hormone 0.3488 uIU/mL (0.35-4.94)
== END 2016-05-27 08:01 | disposition home or self-care (01) ==
LOC: NAV LAB 08:00
PROVIDERS: ATTEND Family Medicine
DX: E11.9 Type 2 diabetes mellitus without complications (principal); Z95.2 Presence of prosthetic heart valve
CPT/HCPCS: 36415; 80053; 80061; 83036; 84439; 84443; 85610

== ENCOUNTER 2016-05-29 10:28 | Emergency (ER) | payer MEDICARE ==
[2016-05-29] MEDS ORDERED: predniSONE 20 MG TAB ONE (11:39)
[2016-05-29] MEDS ORDERED: Albuterol Sulfate 2.5 mg/3 ml Neb ONE (11:39)
[2016-05-29] MEDS ORDERED: Benzonatate 100 MG CAP ONE (11:55)
== END 2016-05-29 12:49 | disposition home or self-care (01) ==
LOC: NAV ERS 10:28
DX: J45.909 Unspecified asthma, uncomplicated (principal); J44.9 Chronic obstructive pulmonary disease, unspecified; E11.9 Type 2 diabetes mellitus without complications; E78.00 Pure hypercholesterolemia, unspecified; I48.91 Unspecified atrial fibrillation; F41.9 Anxiety disorder, unspecified; F32.9 Major depressive disorder, single episode, unspecified; I11.0 Hypertensive heart disease with heart failure; I50.9 Heart failure, unspecified
CPT/HCPCS: 94640; J7506; J7611; J7620

== ENCOUNTER 2016-06-10 07:49 | Outpatient (CLI) | payer MEDICARE | END 2016-06-10 07:50 | disposition home or self-care (01) | LOC: NAV LAB 07:49 | PROVIDERS: ATTEND Family Medicine | DX: Z48.812 Encounter for surgical aftercare following surgery on the circulatory system (principal); Z95.2 Presence of prosthetic heart valve | CPT/HCPCS: 36415; 85610 ==

== ENCOUNTER 2016-06-19 08:53 | Emergency (ER) | payer MEDICARE ==
[2016-06-19] MEDS ORDERED: Ondansetron HCl/PF 4 MG/2 ML Vial ONE (09:46)
[2016-06-19] MEDS ORDERED: Orphenadrine Citrate 60 MG/2 ML VIAL ONE (09:47)
[2016-06-19 10:09] LABS: INR-International Normal Ratio 2.8; Prothrombin Time 30.7 SEC (12.0-14.7)
== END 2016-06-19 10:39 | disposition home or self-care (01) ==
LOC: NAV ERS 08:53
DX: M54.5 Low back pain (principal); E11.9 Type 2 diabetes mellitus without complications; E78.5 Hyperlipidemia, unspecified; I25.10 Atherosclerotic heart disease of native coronary artery without angina pectoris; I11.0 Hypertensive heart disease with heart failure; I50.9 Heart failure, unspecified; J44.9 Chronic obstructive pulmonary disease, unspecified; F32.9 Major depressive disorder, single episode, unspecified; Z79.899 Other long term (current) drug therapy; Z87.891 Personal history of nicotine dependence; Z79.84 Long term (current) use of oral hypoglycemic drugs; Z79.82 Long term (current) use of aspirin; Z79.01 Long term (current) use of anticoagulants
CPT/HCPCS: 85610; 96374; 96375; J2360; J2405

== ENCOUNTER 2016-06-26 09:20 | Outpatient (CLI) | payer MEDICARE ==
[2016-06-26 10:14] LABS: INR-International Normal Ratio 2.6; Prothrombin Time 29.2 SEC (12.0-14.7)
== END 2016-06-26 09:21 | disposition home or self-care (01) ==
LOC: NAV LAB 09:20
PROVIDERS: ATTEND Family Medicine
DX: Z48.812 Encounter for surgical aftercare following surgery on the circulatory system (principal); Z95.2 Presence of prosthetic heart valve
CPT/HCPCS: 36415; 85610

== ENCOUNTER 2016-07-10 11:29 | Outpatient (CLI) | payer MEDICARE ==
[2016-07-10 12:34] LABS: INR-International Normal Ratio 1.8; Prothrombin Time 21.2 SEC (12.0-14.7)
== END 2016-07-10 11:30 | disposition home or self-care (01) ==
LOC: NAV LAB 11:29
PROVIDERS: ATTEND Family Medicine
DX: Z51.81 Encounter for therapeutic drug level monitoring (principal); Z95.2 Presence of prosthetic heart valve; Z79.01 Long term (current) use of anticoagulants
CPT/HCPCS: 36415; 85610

== ENCOUNTER 2016-07-15 12:05 | Emergency (ER) | payer MEDICARE ==
[2016-07-15 13:13] LABS: #Basophils 0.2 thou/uL (0.0-0.2); #Eosinphils 0.2 thou/uL (0.0-0.7); #Lymphocytes 4.3 thou/uL (1.20-3.40); #Monocytes 1.1 thou/uL (0.11-0.59); #Neutrophils 10.6 thou/uL (1.40-6.50); %Basophils 1.2 % (0.0-1.0); %Eosinophils 1.3 % (0.0-10.0); %Lymphocytes 26.3 % (21.0-51.0); %Monocytes 6.7 % (0.0-10.0); %Neutrophils 64.6 % (42.0-75.0); Hemoglobin 13.8 g/dL (12.0-16.0); Mean Corpuscular HGB CONC 31.8 g/dL (32.0-36.0); Mean Corpuscular Hemoglobin 30.2 pg (27.0-31.0); Mean Platelet Volume 6.3 fL (7.4-10.4); Platelet Count 356 thou/uL (130-400); RBC Distribution Width 12.8 % (11.5-14.5); Red Blood Cell (RBC) Count 4.56 mill/uL (4.20-5.40); White Blood Cell (WBC) Count 16.4 thou/uL (4.8-10.8)
[2016-07-15 13:18] LABS: INR-International Normal Ratio 2.6; PTT 32.3 SEC (22.9-36.1)
[2016-07-15] MEDS ORDERED: predniSONE 20 MG TAB ONE (13:20)
[2016-07-15 13:27] LABS: ALT (SGPT) 40 U/L (8-55); AST (SGOT) 37 U/L (5-34); Alkaline Phosphatase 60 U/L (40-150); Anion Gap 17 mmol/L (10-20); BUN (Urea Nitrogen) 12 mg/dL (9.8-20.1); Bilirubin, Total 0.4 mg/dL (0.2-1.2); Calc. Creatinine Clearance 0 mL/min (70-130); Calcium 9.3 mg/dL (7.8-10.44); Carbon Dioxide 24 mmol/L (22-29); Chloride 101 mmol/L (98-107); Estimated GFR-MDRD Greater than 90; Globulin 3.3 g/dL (2.4-3.5); Glucose 125 mg/dL (70-105); Protein, Total 7.3 g/dL (6.0-8.3); Sodium 138 mmol/L (136-145)
[2016-07-15] MEDS ORDERED: Ondansetron ODT 4 MG TAB ONE (14:24)
--- NOTE | 2016-07-15 14:39 | RAD ---
PA AND LATERAL VIEWS CHEST: HISTORY: Exacerbation of asthma. FINDINGS: Comparison is made with the exam of 02/27/16. There are changes of median sternotomy. Left-sided AICD remains in place. The heart is enlarged. Postop changes of aortic valve replacement are again seen. No confluent areas of consolidation, pne umothorax, olivia pulmonary edema, or pleural effusions are seen. IMPRESSION: Cardiomegaly. POS: [facility]
[2016-07-15] MEDS ORDERED: Acetaminophen 500 MG TAB ONE (14:47)
== END 2016-07-15 15:19 | disposition home or self-care (01) ==
LOC: NAV ERS 12:05
DX: J45.909 Unspecified asthma, uncomplicated (principal); I11.0 Hypertensive heart disease with heart failure; I50.9 Heart failure, unspecified; E11.9 Type 2 diabetes mellitus without complications; E78.5 Hyperlipidemia, unspecified; I25.10 Atherosclerotic heart disease of native coronary artery without angina pectoris; J44.9 Chronic obstructive pulmonary disease, unspecified; I48.91 Unspecified atrial fibrillation; F32.9 Major depressive disorder, single episode, unspecified; Z87.891 Personal history of nicotine dependence; Z79.84 Long term (current) use of oral hypoglycemic drugs; Z79.82 Long term (current) use of aspirin
CPT/HCPCS: 71020; 80053; 80162; 83880; 85025; 85610; 85730; 94640; J7506; J7620; Q0162

== ENCOUNTER 2016-07-27 14:53 | Outpatient (CLI) | payer MEDICARE ==
[2016-07-27 15:30] LABS: PTT 33.4 SEC (22.9-36.1); Prothrombin Time 23.7 SEC (12.0-14.7)
== END 2016-07-27 14:54 | disposition home or self-care (01) ==
LOC: NAV LAB 14:53
PROVIDERS: ATTEND Family Medicine
DX: Z48.812 Encounter for surgical aftercare following surgery on the circulatory system (principal); Z95.2 Presence of prosthetic heart valve
CPT/HCPCS: 36415; 85610; 85730

== ENCOUNTER 2016-07-28 21:10 | Emergency (ER) | payer MEDICARE ==
[2016-07-28] MEDS ORDERED: Acetaminophen/Codeine 30-300mg Tablet ONE (21:28)
--- NOTE | 2016-07-28 21:45 | RAD ---
LEFT FOOT THREE VIEWS: 07/28/16 HISTORY: Left great toe pain. Some minimal arthritic changes of the first metatarsophalangeal joint. There is no signs of fracture or other bony findings. IMPRESSION: No acute finding. POS: [facility]
== END 2016-07-28 22:05 | disposition home or self-care (01) ==
LOC: NAV ERS 21:10
DX: S90.32XA Contusion of left foot, initial encounter (principal); J01.90 Acute sinusitis, unspecified; E11.9 Type 2 diabetes mellitus without complications; E78.5 Hyperlipidemia, unspecified; I10 Essential (primary) hypertension; I25.10 Atherosclerotic heart disease of native coronary artery without angina pectoris; J44.9 Chronic obstructive pulmonary disease, unspecified; I48.91 Unspecified atrial fibrillation; I11.0 Hypertensive heart disease with heart failure; I50.9 Heart failure, unspecified; F41.9 Anxiety disorder, unspecified; F32.9 Major depressive disorder, single episode, unspecified; Z95.0 Presence of cardiac pacemaker; Z79.84 Long term (current) use of oral hypoglycemic drugs; Z79.01 Long term (current) use of anticoagulants; Z79.82 Long term (current) use of aspirin; Z79.899 Other long term (current) drug therapy; Z87.891 Personal history of nicotine dependence; W22.8XXA Striking against or struck by other objects, initial encounter

== ENCOUNTER 2016-08-06 17:41 | Outpatient (CLI) | payer MEDICARE ==
[2016-08-06 18:20] LABS: INR-International Normal Ratio 2.4; PTT 37.9 SEC (22.9-36.1); Prothrombin Time 27.2 SEC (12.0-14.7)
== END 2016-08-06 17:42 | disposition home or self-care (01) ==
LOC: NAV LAB 17:41
PROVIDERS: ATTEND Family Medicine
DX: Z48.812 Encounter for surgical aftercare following surgery on the circulatory system (principal); Z95.2 Presence of prosthetic heart valve
CPT/HCPCS: 36415; 85610; 85730

== ENCOUNTER 2016-08-17 13:38 | Outpatient (CLI) | payer MEDICARE ==
[2016-08-17 14:28] LABS: INR-International Normal Ratio 3.1; Prothrombin Time 33.4 SEC (12.0-14.7)
== END 2016-08-17 13:39 | disposition home or self-care (01) ==
LOC: NAV LAB 13:38
PROVIDERS: ATTEND Family Medicine
DX: Z48.812 Encounter for surgical aftercare following surgery on the circulatory system (principal); Z95.2 Presence of prosthetic heart valve
CPT/HCPCS: 36415; 85610

== ENCOUNTER 2016-09-01 14:57 | Outpatient (CLI) | payer MEDICARE ==
[2016-09-01 15:44] LABS: INR-International Normal Ratio 2.1; Prothrombin Time 24.5 SEC (12.0-14.7)
== END 2016-09-01 14:58 | disposition home or self-care (01) ==
LOC: NAV LAB 14:57
PROVIDERS: ATTEND Family Medicine
DX: Z48.812 Encounter for surgical aftercare following surgery on the circulatory system (principal); Z95.2 Presence of prosthetic heart valve
CPT/HCPCS: 85610

== ENCOUNTER 2016-09-11 17:10 | Outpatient (CLI) | payer MEDICARE ==
[2016-09-11 17:48] LABS: INR-International Normal Ratio 1.8; Prothrombin Time 21.4 SEC (12.0-14.7)
== END 2016-09-11 17:11 | disposition home or self-care (01) ==
LOC: NAV LAB 17:10
PROVIDERS: ATTEND Family Medicine
DX: Z48.812 Encounter for surgical aftercare following surgery on the circulatory system (principal); Z95.2 Presence of prosthetic heart valve
CPT/HCPCS: 85610

== ENCOUNTER 2016-09-23 12:23 | Outpatient (CLI) | payer MEDICARE ==
[2016-09-23 13:23] LABS: INR-International Normal Ratio 1.5; Prothrombin Time 18.4 SEC (12.0-14.7)
== END 2016-09-23 12:24 | disposition home or self-care (01) ==
LOC: NAV LAB 12:23
PROVIDERS: ATTEND Family Medicine
DX: Z95.2 Presence of prosthetic heart valve (principal)
CPT/HCPCS: 36415; 85610

== ENCOUNTER 2016-09-24 19:28 | Outpatient (CLI) | payer MEDICARE ==
[2016-09-24 20:26] LABS: INR-International Normal Ratio 1.6
== END 2016-09-24 19:29 | disposition home or self-care (01) ==
LOC: NAV LAB 19:28
PROVIDERS: ATTEND Family Medicine
DX: Z48.812 Encounter for surgical aftercare following surgery on the circulatory system (principal); Z95.2 Presence of prosthetic heart valve
CPT/HCPCS: 85610

== ENCOUNTER 2016-09-30 10:59 | Outpatient (CLI) | payer MEDICARE ==
[2016-09-30 11:25] LABS: INR-International Normal Ratio 1.6; Prothrombin Time 19.5 SEC (12.0-14.7)
== END 2016-09-30 11:00 | disposition home or self-care (01) ==
LOC: NAV LAB 10:59
PROVIDERS: ATTEND Family Medicine
DX: Z48.812 Encounter for surgical aftercare following surgery on the circulatory system (principal); Z95.2 Presence of prosthetic heart valve
CPT/HCPCS: 36415; 85610

== ENCOUNTER 2016-10-03 14:20 | Outpatient (CLI) | payer MEDICARE ==
[2016-10-03 14:51] LABS: INR-International Normal Ratio 1.8; Prothrombin Time 21.1 SEC (12.0-14.7)
== END 2016-10-03 14:21 | disposition home or self-care (01) ==
LOC: NAV LAB 14:20
PROVIDERS: ATTEND Family Medicine
DX: Z48.812 Encounter for surgical aftercare following surgery on the circulatory system (principal); Z95.2 Presence of prosthetic heart valve
CPT/HCPCS: 36415; 85610

== ENCOUNTER 2016-10-09 12:09 | Outpatient (CLI) | payer MEDICARE, OTHER ==
[2016-10-09 12:46] LABS: INR-International Normal Ratio 3.4; Prothrombin Time 35.7 SEC (12.0-14.7)
== END 2016-10-09 12:10 | disposition home or self-care (01) ==
LOC: NAV LAB 12:09
PROVIDERS: ATTEND Family Medicine
DX: Z48.812 Encounter for surgical aftercare following surgery on the circulatory system (principal); Z95.2 Presence of prosthetic heart valve
CPT/HCPCS: 36415; 85610

== ENCOUNTER 2016-10-24 19:51 | Outpatient (CLI) | payer MEDICARE ==
[2016-10-24 20:36] LABS: INR-International Normal Ratio 2.2
== END 2016-10-24 19:52 | disposition home or self-care (01) ==
LOC: NAV LAB 19:51
PROVIDERS: ATTEND Family Medicine
DX: Z51.81 Encounter for therapeutic drug level monitoring (principal); Z95.2 Presence of prosthetic heart valve; Z79.01 Long term (current) use of anticoagulants
CPT/HCPCS: 85610

== ENCOUNTER 2016-11-11 16:39 | Outpatient (CLI) | payer MEDICARE ==
[2016-11-11 18:11] LABS: Prothrombin Time 46.7 SEC (12.0-14.7)
[2016-11-12 08:24] LABS: INR-International Normal Ratio 4.7
== END 2016-11-11 16:40 | disposition home or self-care (01) ==
LOC: NAV LAB 16:39
PROVIDERS: ATTEND Family Medicine
DX: Z95.2 Presence of prosthetic heart valve (principal)
CPT/HCPCS: 36415; 85610

== ENCOUNTER 2016-11-20 15:53 | Outpatient (CLI) | payer MEDICARE ==
[2016-11-20 18:53] LABS: INR-International Normal Ratio 1.4; Prothrombin Time 17.1 SEC (12.0-14.7)
== END 2016-11-20 15:54 | disposition home or self-care (01) ==
LOC: NAV LAB 15:53
PROVIDERS: ATTEND Family Medicine
DX: Z95.2 Presence of prosthetic heart valve (principal)
CPT/HCPCS: 36415; 85610

== ENCOUNTER 2017-03-04 18:08 | Emergency (ER) | payer MEDICARE ==
[2017-03-04] MEDS ORDERED: Ketorolac Tromethamine 60 MG/2 ML VIAL ONE (18:18)
== END 2017-03-04 19:09 | disposition home or self-care (01) ==
LOC: NAV ERS 18:08
DX: J06.9 Acute upper respiratory infection, unspecified (principal); E11.9 Type 2 diabetes mellitus without complications; E78.5 Hyperlipidemia, unspecified; I10 Essential (primary) hypertension; I25.10 Atherosclerotic heart disease of native coronary artery without angina pectoris; J44.9 Chronic obstructive pulmonary disease, unspecified; I11.0 Hypertensive heart disease with heart failure; I50.9 Heart failure, unspecified; F41.9 Anxiety disorder, unspecified; F32.9 Major depressive disorder, single episode, unspecified; Z87.891 Personal history of nicotine dependence
CPT/HCPCS: 94640; 96372; J1885; J7620

== ENCOUNTER 2017-06-22 09:13 | Emergency (ER) | payer MEDICARE ==
[~2017-06-22 09:13] MED LIST: Iopamidol 370 76% 100 ML VIAL ONE
[2017-06-22] MEDS ORDERED: Morphine 4 MG/ML Carpuject ONE ×2 (09:38→14:23)
[2017-06-22] MEDS ORDERED: Ondansetron HCl/PF 4 MG/2 ML Vial ONE (09:39)
[2017-06-22 09:51] LABS: #Basophils 0.1 thou/uL (0.0-0.2); #Eosinphils 0.3 thou/uL (0.0-0.7); #Lymphocytes 2.6 thou/uL (1.20-3.40); #Monocytes 0.6 thou/uL (0.11-0.59); #Neutrophils 5.9 thou/uL (1.40-6.50); %Basophils 1.2 % (0.0-1.0); %Lymphocytes 26.9 % (21.0-51.0); %Monocytes 6.4 % (0.0-10.0); %Neutrophils 62.6 % (42.0-75.0); Hemoglobin 12.3 g/dL (12.0-16.0); Mean Corpuscular HGB CONC 30.8 g/dL (32.0-36.0); Mean Corpuscular Hemoglobin 29.2 pg (27.0-31.0); Mean Corpuscular Volume 94.6 fl (81.0-99.0); Mean Platelet Volume 6.9 fL (7.4-10.4); Platelet Count 294 thou/uL (130-400); RBC Distribution Width 13.1 % (11.5-14.5); Red Blood Cell (RBC) Count 4.21 mill/uL (4.20-5.40); White Blood Cell (WBC) Count 9.5 thou/uL (4.8-10.8)
[2017-06-22 10:01] LABS: ALT (SGPT) 44 U/L (8-55); AST (SGOT) 34 U/L (5-34); Albumin 3.9 g/dL (3.5-5.0); Alkaline Phosphatase 57 U/L (40-150); Anion Gap 15 mmol/L (10-20); BUN (Urea Nitrogen) 7 mg/dL (9.8-20.1); Bilirubin, Total 0.5 mg/dL (0.2-1.2); CK (CPK) 58 U/L (29-168); CKMB 1.4 ng/mL (0-6.6); Calc. Creatinine Clearance 0 mL/min (70-130); Calcium 9.5 mg/dL (7.8-10.44); Carbon Dioxide 24 mmol/L (22-29); Chloride 103 mmol/L (98-107); Estimated GFR-MDRD Greater than 90; Globulin 2.4 g/dL (2.4-3.5); Glucose 137 mg/dL (70-105); Lipase 30 U/L (8-78); Potassium 4.5 mmol/L (3.5-5.1); Protein, Total 6.3 g/dL (6.0-8.3); Sodium 137 mmol/L (136-145); Troponin I 0.012 ng/mL (< 0.028)
--- NOTE | 2017-06-22 12:00 | RAD ---
CHEST 1 VIEW AND ABDOMEN 2 VIEWS: Date: 06/22/17 HISTORY: Abdominal pain. FINDINGS/IMPRESSION: There are changes of median sternotomy. The heart is enlarged. A left-sided AICD is present. No lobar consolidation, pneumothoraces, olivia pulmonary edema, or pleural effusions are seen. No free air or differential fluid levels are identified. The bowel gas pattern is unremarkable. POS: [facility]
[2017-06-22 13:03] LABS: Bilirubin Negative (Negative); Blood, Urine Negative (Negative); Clarity Clear (Clear); Glucose, Urine (Dipstick) Negative (Negative); Leukocyte Trace (Negative); Nitrite Negative (Negative); Protein, Urine (Dipstick) Negative (Neg-Trace); Specific Gravity, Urine 1.015 (1.005-1.030); Urobilinogen 0.2 mg/dL (0.2-1.0)
[2017-06-22 13:17] LABS: Bacteria/HPF Rare-Few HPF (None Seen); Crystals/HPF 1+ URIC ACID HPF (Negative); Other Microscopic Description NO; RBC/HPF None Seen HPF (0-3)
--- NOTE | 2017-06-22 14:04 | CT ---
CT ABDOMEN AND PELVIS WITH IV AND ORAL CONTRAST: Date: 06/22/17 HISTORY: Abdominal pain. Patient's IV leaked and a delayed scan was performed. FINDINGS: There is contrast in the pelvicaliceal systems and ureters and urinary bladder. Evaluation of the sarah id organs is suboptimal due to delayed imaging. No free air or free fluid is seen in the abdomen or pelvis. No calcified gallstones are seen. The sma ll bowel loops are not abnormally dilated. There are vascular calcifications without evidence of aneu rysmal dilatation of the abdominal aorta. Uterus is present. There is a 3.0 cm low density lesion in the left adnexa suspicious for mass. There are mild degenerative changes in the spine. IMPRESSION: 1. No evidence of bowel obstruction or high grade urinary tract obstruction. 2. Findings suspicious for a 3.0 cm left adnexal mass. Further evaluation with pelvic ultrasound is recommended. POS: [facility]
== END 2017-06-22 15:56 | disposition short-term general hospital (02) ==
LOC: NAV ERS 09:13
DX: R10.32 Left lower quadrant pain (principal); E11.9 Type 2 diabetes mellitus without complications; E78.5 Hyperlipidemia, unspecified; I10 Essential (primary) hypertension; I25.10 Atherosclerotic heart disease of native coronary artery without angina pectoris; J44.9 Chronic obstructive pulmonary disease, unspecified; I48.91 Unspecified atrial fibrillation; F32.9 Major depressive disorder, single episode, unspecified; Z87.891 Personal history of nicotine dependence; Z79.01 Long term (current) use of anticoagulants; Z79.82 Long term (current) use of aspirin; Z79.899 Other long term (current) drug therapy; Z79.84 Long term (current) use of oral hypoglycemic drugs
CPT/HCPCS: 74022; 74177; 80053; 81003; 81015; 82553; 83690; 84484; 85025; 93005; 96374; 96375; 96376; J2270; J2405

== ENCOUNTER 2017-09-19 12:21 | Emergency (ER) | payer MEDICARE ==
[2017-09-19] MEDS ORDERED: Sodium Chloride 0.9% 1,000 ML ONE (13:02)
[2017-09-19] MEDS ORDERED: Pantoprazole 40 MG VIAL ONE (13:02)
[2017-09-19] MEDS ORDERED: Ondansetron HCl/PF 4 MG/2 ML Vial ONE (13:02)
[2017-09-19 13:06] LABS: #Basophils 0.1 thou/uL (0.0-0.2); #Eosinphils 0.2 thou/uL (0.0-0.7); #Lymphocytes 2.3 thou/uL (1.20-3.40); #Monocytes 0.9 thou/uL (0.11-0.59); #Neutrophils 5.5 thou/uL (1.40-6.50); %Basophils 1.4 % (0.0-1.0); %Eosinophils 2.7 % (0.0-10.0); %Lymphocytes 25.8 % (21.0-51.0); %Monocytes 9.5 % (0.0-10.0); %Neutrophils 60.6 % (42.0-75.0); Hemoglobin 12.1 g/dL (12.0-16.0); Mean Corpuscular HGB CONC 30.6 g/dL (32.0-36.0); Mean Corpuscular Hemoglobin 29.3 pg (27.0-31.0); Mean Corpuscular Volume 95.7 fL (78.0-98.0); Mean Platelet Volume 6.1 fL (7.4-10.4); Platelet Count 433 thou/uL (130-400); RBC Distribution Width 13.2 % (11.5-14.5); Red Blood Cell (RBC) Count 4.12 mill/uL (4.20-5.40)
[2017-09-19 13:27] LABS: ALT (SGPT) 31 U/L (8-55); AST (SGOT) 24 U/L (5-34); Alkaline Phosphatase 81 U/L (40-150); Anion Gap 15 mmol/L (10-20); BUN (Urea Nitrogen) 17 mg/dL (9.8-20.1); Bilirubin, Total 0.5 mg/dL (0.2-1.2); Calc. Creatinine Clearance 0 mL/min (70-130); Calcium 10.2 mg/dL (7.8-10.44); Carbon Dioxide 23 mmol/L (22-29); Chloride 105 mmol/L (98-107); Estimated GFR-MDRD Greater than 90; Globulin 2.9 g/dL (2.4-3.5); Glucose 123 mg/dL (70-105); Lipase 63 U/L (8-78); Potassium 4.1 mmol/L (3.5-5.1); Protein, Total 6.9 g/dL (6.0-8.3); Sodium 139 mmol/L (136-145)
[2017-09-19 13:32] LABS: Bilirubin Negative (Negative); Blood, Urine Negative (Negative); Clarity Clear (Clear); Glucose, Urine (Dipstick) Negative (Negative); Leukocyte Negative (Negative); Nitrite Negative (Negative); Protein, Urine (Dipstick) 30 mg/dL (Neg-Trace); Urobilinogen 0.2 mg/dL (0.2-1.0); pH, Urine 5.5 (5.0-9.0)
[2017-09-19 13:33] LABS: Pregnancy Test - Urine (BHCG) Negative (Negative); Pregu Control Background? CLEAR/WHITE (CLR/WHITE); Pregu Control Bar Appear? YES (CONTROL BAR); Specific Gravity 1.032 (1.002-1.036)
[2017-09-19 13:34] LABS: Specific Gravity, Urine 1.032 (1.002-1.036)
[2017-09-19 13:56] LABS: Bacteria/HPF Rare-Few HPF (None Seen); RBC/HPF 0-3 HPF (0-3); WBC/HPF None Seen HPF (0-3)
[2017-09-19] MEDS ORDERED: Ketorolac Tromethamine 30 MG/ML VIAL ONE (13:56)
[2017-09-19 13:57] LABS: Crystals/HPF 1+ CA OXALATE HPF (Negative)
--- NOTE | 2017-09-19 15:43 | RAD ---
CHEST ONE VIEW ABDOMEN TWO VIEWS: History: 52-year-old female with abdominal pain, body aches, headache, nausea, and diarrhea. Comparison: 06-22-17 FINDINGS: Cardiomegaly with post underlying sternotomy and valvular replacement changes and left ICD changes wi th small left pleural effusion and some vascular congestion, stable. Bowel gas pattern is unremarkabl e with some scattered gas and fecal material in the colon. No evidence for large or small bowel obstr uction. No overt calculus. No free intraperitoneal air. IMPRESSION: No acute process in the abdomen. Stable appearing chest. POS: [facility]
== END 2017-09-19 14:20 | disposition home or self-care (01) ==
LOC: NAV ERS 12:21
DX: K52.9 Noninfective gastroenteritis and colitis, unspecified (principal); M54.5 Low back pain; E11.9 Type 2 diabetes mellitus without complications; I25.10 Atherosclerotic heart disease of native coronary artery without angina pectoris; E78.5 Hyperlipidemia, unspecified; I48.91 Unspecified atrial fibrillation; K21.9 Gastro-esophageal reflux disease without esophagitis; F41.9 Anxiety disorder, unspecified; F32.9 Major depressive disorder, single episode, unspecified; Z87.891 Personal history of nicotine dependence; Z79.01 Long term (current) use of anticoagulants; Z79.899 Other long term (current) drug therapy; Z79.84 Long term (current) use of oral hypoglycemic drugs; Z79.82 Long term (current) use of aspirin
CPT/HCPCS: 74022; 80053; 81003; 81015; 81025; 82150; 83690; 85025; 96361; 96372; 96374; 96375; C9113; J1885; J2405; J7050

== ENCOUNTER 2017-11-10 13:31 | Emergency (ER) | payer MEDICARE ==
[2017-11-10] MEDS ORDERED: predniSONE 20 MG TAB ONE (13:53)
[2017-11-10] MEDS ORDERED: Ibuprofen 800 MG TAB ONE (14:29)
[2017-11-10] MEDS ORDERED: Acetaminophen 500 MG TAB ONE (14:31)
--- NOTE | 2017-11-10 15:27 | RAD ---
CHEST 2 VIEWS: Date: 11/10/17 HISTORY: Shortness of breath. Cough. COMPARISON: 07/15/16. FINDINGS: Heart size is enlarged. Valve replacements are again noted. No signs of overt failure or focal infilt rates. IMPRESSION: Marked cardiomegaly. No signs of overt failure. POS: [facility]
== END 2017-11-10 15:11 | disposition home or self-care (01) ==
LOC: NAV ERS 13:31
DX: J20.9 Acute bronchitis, unspecified (principal); E11.9 Type 2 diabetes mellitus without complications; E78.5 Hyperlipidemia, unspecified; I25.10 Atherosclerotic heart disease of native coronary artery without angina pectoris; J44.9 Chronic obstructive pulmonary disease, unspecified; I11.0 Hypertensive heart disease with heart failure; I50.9 Heart failure, unspecified; I48.91 Unspecified atrial fibrillation; K21.9 Gastro-esophageal reflux disease without esophagitis; F32.9 Major depressive disorder, single episode, unspecified; F41.9 Anxiety disorder, unspecified; Z87.891 Personal history of nicotine dependence; Z79.899 Other long term (current) drug therapy; Z79.82 Long term (current) use of aspirin; Z79.84 Long term (current) use of oral hypoglycemic drugs; Z79.01 Long term (current) use of anticoagulants
CPT/HCPCS: 71046; 94640; J7506; J7620

== ENCOUNTER 2017-11-18 12:13 | Emergency (ER) | payer MEDICARE ==
[2017-11-18] MEDS ORDERED: predniSONE 20 MG TAB ONE (12:27)
[2017-11-18] MEDS ORDERED: Acetaminophen 500 MG TAB ONE (12:28)
--- NOTE | 2017-11-18 13:25 | RAD ---
PORTABLE AP CHEST RADIOGRAPH: Date: 11-18-17 History: Cough, congestion, sore throat. Comparison: 11-10-17 FINDINGS: Multi-lead left subclavian AICD device remains in place. Post-surgical changes related to cardiac beth ve replacement are again noted with median sternotomy wires noted. Cardiac silhouette remains enlarge d. Pulmonary vasculature is stable from prior exam. Lungs are clear. There has been no interval jiménez e compared to the prior exam. IMPRESSION: 1. Stable chest without evidence of acute cardiopulmonary process. 2. Marked cardiomegaly, unchanged from prior exam with post-surgical changes related to cardiac valve replacement. POS: [facility]
[2017-11-18] MEDS ORDERED: Doxycycline 100 MG CAP ONE (13:40)
== END 2017-11-18 13:40 | disposition home or self-care (01) ==
LOC: NAV ERS 12:13
DX: J20.9 Acute bronchitis, unspecified (principal); J02.9 Acute pharyngitis, unspecified; E11.9 Type 2 diabetes mellitus without complications; E78.5 Hyperlipidemia, unspecified; I25.10 Atherosclerotic heart disease of native coronary artery without angina pectoris; J44.9 Chronic obstructive pulmonary disease, unspecified; I11.0 Hypertensive heart disease with heart failure; I50.9 Heart failure, unspecified; I48.91 Unspecified atrial fibrillation; K21.9 Gastro-esophageal reflux disease without esophagitis; F41.9 Anxiety disorder, unspecified; F32.9 Major depressive disorder, single episode, unspecified; Z87.891 Personal history of nicotine dependence; Z79.899 Other long term (current) drug therapy; Z79.82 Long term (current) use of aspirin; Z79.84 Long term (current) use of oral hypoglycemic drugs; Z79.01 Long term (current) use of anticoagulants
CPT/HCPCS: 71046; 87081; 87430; 87804; 94640; 94760; J7506; J7620

== ENCOUNTER 2018-02-08 16:27 | Emergency (ER) | payer MEDICARE ==
[2018-02-08] MEDS ORDERED: AMOXicillin 250 MG CAP ONE (16:56)
[2018-02-08] MEDS ORDERED: methylPREDNISolone Sod Succ/PF 125 MG/2 ML VIAL ONE (16:56)
== END 2018-02-08 17:15 | disposition home or self-care (01) ==
LOC: NAV ERS 16:27
DX: K02.9 Dental caries, unspecified (principal); M54.41 Lumbago with sciatica, right side; E11.9 Type 2 diabetes mellitus without complications; E78.5 Hyperlipidemia, unspecified; I25.10 Atherosclerotic heart disease of native coronary artery without angina pectoris; J44.9 Chronic obstructive pulmonary disease, unspecified; I48.91 Unspecified atrial fibrillation; K21.9 Gastro-esophageal reflux disease without esophagitis; I11.0 Hypertensive heart disease with heart failure; I50.9 Heart failure, unspecified; F41.9 Anxiety disorder, unspecified; F32.9 Major depressive disorder, single episode, unspecified; Z79.899 Other long term (current) drug therapy; Z79.82 Long term (current) use of aspirin; Z79.84 Long term (current) use of oral hypoglycemic drugs; Z79.01 Long term (current) use of anticoagulants
CPT/HCPCS: 96372; J2930

== ENCOUNTER 2018-04-28 14:30 | Emergency (ER) | payer MEDICARE ==
[2018-04-28] MEDS ORDERED: methylPREDNISolone Sod Succ/PF 125 MG/2 ML VIAL ONE (15:02)
[2018-04-28] MEDS ORDERED: Ondansetron ODT 4 MG TAB ONE (15:05)
[2018-04-28] MEDS ORDERED: Albuterol Sulfate 2.5 mg/3 ml Neb ONE (15:20)
[2018-04-28] MEDS ORDERED: Amoxicillin/Potassium Clav 875 MG TAB ONE (16:04)
== END 2018-04-28 16:15 | disposition home or self-care (01) ==
LOC: NAV ERS 14:30
DX: J44.9 Chronic obstructive pulmonary disease, unspecified (principal); E78.5 Hyperlipidemia, unspecified; E11.9 Type 2 diabetes mellitus without complications; I11.0 Hypertensive heart disease with heart failure; I50.9 Heart failure, unspecified; F41.9 Anxiety disorder, unspecified; F32.9 Major depressive disorder, single episode, unspecified; Z87.891 Personal history of nicotine dependence; Z79.899 Other long term (current) drug therapy; Z79.84 Long term (current) use of oral hypoglycemic drugs; Z79.01 Long term (current) use of anticoagulants; Z79.82 Long term (current) use of aspirin; Z79.51 Long term (current) use of inhaled steroids
CPT/HCPCS: 87804; 96372; J2930; J7611; J7620; Q0162

== ENCOUNTER 2018-11-06 13:24 | Outpatient (CLI) | payer MEDICARE ==
[2018-11-07 11:36] LABS: INR-International Normal Ratio 1.2
== END 2018-11-06 13:25 | disposition home or self-care (01) ==
LOC: NAV LABSP 13:24
PROVIDERS: ATTEND Family Medicine
DX: Z51.81 Encounter for therapeutic drug level monitoring (principal); Z79.899 Other long term (current) drug therapy; Z95.2 Presence of prosthetic heart valve
CPT/HCPCS: 85610

== ENCOUNTER 2019-01-22 19:03 | Emergency (ER) | payer MEDICARE ==
[2019-01-22 19:50] LABS: #Basophils 0.1 thou/uL (0.0-0.2); #Eosinphils 0.2 thou/uL (0.0-0.7); #Lymphocytes 1.8 thou/uL (1.20-3.40); #Monocytes 1.1 thou/uL (0.11-0.59); #Neutrophils 5.7 thou/uL (1.40-6.50); %Basophils 0.8 % (0.0-1.0); %Eosinophils 2.7 % (0.0-10.0); %Lymphocytes 20.2 % (21.0-51.0); %Neutrophils 64.3 % (42.0-75.0); Hemoglobin 12.7 g/dL (12.0-16.0); Mean Corpuscular HGB CONC 32.8 g/dL (32.0-36.0); Mean Corpuscular Hemoglobin 31.2 pg (27.0-31.0); Mean Corpuscular Volume 95.1 fL (78.0-98.0); Mean Platelet Volume 6.5 fL (7.4-10.4); Platelet Count 268 thou/uL (130-400); RBC Distribution Width 11.8 % (11.5-14.5); Red Blood Cell (RBC) Count 4.08 mill/uL (4.20-5.40); White Blood Cell (WBC) Count 8.9 thou/uL (4.8-10.8)
[2019-01-22 20:11] LABS: ALT (SGPT) 25 U/L (8-55); AST (SGOT) 24 U/L (5-34); Alkaline Phosphatase 72 U/L (40-110); Anion Gap 13 mmol/L (10-20); BUN (Urea Nitrogen) 10 mg/dL (9.8-20.1); Bilirubin, Total 0.6 mg/dL (0.2-1.2); Calc. Creatinine Clearance 0 mL/min (70-130); Calcium 9.6 mg/dL (7.8-10.44); Carbon Dioxide 26 mmol/L (22-29); Chloride 103 mmol/L (98-107); Estimated GFR-MDRD Greater than 90; Globulin 2.7 g/dL (2.4-3.5); Glucose 106 mg/dL (70-105); Potassium 3.9 mmol/L (3.5-5.1); Protein, Total 6.7 g/dL (6.0-8.3); Sodium 138 mmol/L (136-145)
--- NOTE | 2019-01-22 20:18 | RAD ---
RADIOGRAPH CHEST 2 VIEW: DATE: 01/22/2019 HISTORY: 54-year-old female with cough FINDINGS: There is cardiomegaly. There is no evidence of airspace density, pulmonary edema, pleural effusion, o r pneumothorax. Left subclavian AICD. Sternotomy wires. Diffuse prominence of upper lobe pulmonary veins. No interval change since 11/18/2017. IMPRESSION: 1) No acute pulmonary findings. 2) severe cardiomegaly and pulmonary venous congestion. 3) status post open heart surgery with prosthetic cardiac valves. 4) automatic implantable cardioverter-defibrillator..
[2019-01-22 20:26] LABS: Bilirubin Negative (Negative); Blood, Urine Trace (Negative); Clarity Cloudy (Clear); Glucose, Urine (Dipstick) Negative (Negative); Leukocyte Trace (Negative); Nitrite Negative (Negative); Protein, Urine (Dipstick) Negative (Neg-Trace)
[2019-01-22 20:38] LABS: Bacteria/HPF Rare-Few HPF (None Seen); RBC/HPF 0-3 HPF (0-3); Squamous Epithelial 0-3 HPF (0-3); WBC/HPF 0-3 HPF (0-3)
[2019-01-22] MEDS ORDERED: Ondansetron PF 4 MG/2 ML Vial ONE (20:55)
[2019-01-22] MEDS ORDERED: Cephalexin 250 MG CAP ONE (20:55)
[2019-01-22 21:05] LABS: CKMB 1.1 ng/mL (0-6.6)
[2019-01-22] MEDS ORDERED: Acetaminophen/Codeine 30-300mg Tablet ONE (21:26)
[2019-01-25 22:46] LABS: Chlam.trachomatis by PCR,Urine Not Detected (NotDetected)
== END 2019-01-22 21:37 | disposition home or self-care (01) ==
LOC: NAV ERS 19:03
DX: J20.9 Acute bronchitis, unspecified (principal); J06.9 Acute upper respiratory infection, unspecified; R30.0 Dysuria; I11.0 Hypertensive heart disease with heart failure; I50.9 Heart failure, unspecified; E11.9 Type 2 diabetes mellitus without complications; E78.00 Pure hypercholesterolemia, unspecified; E78.5 Hyperlipidemia, unspecified; I25.2 Old myocardial infarction; J44.9 Chronic obstructive pulmonary disease, unspecified; I09.9 Rheumatic heart disease, unspecified; Z87.891 Personal history of nicotine dependence; Z79.01 Long term (current) use of anticoagulants; Z79.899 Other long term (current) drug therapy; Z79.84 Long term (current) use of oral hypoglycemic drugs
CPT/HCPCS: 36415; 71046; 80053; 81003; 81015; 82553; 83880; 84484; 85025; 87491; 87591; 87804; 96374; J2405

== ENCOUNTER 2019-09-05 15:54 | Emergency (ER) | payer MEDICARE, OTHER ==
[2019-09-05] MEDS ORDERED: Ondansetron ODT 4 MG TAB ONE (16:13)
[2019-09-05] MEDS ORDERED: Acetaminophen 500 MG TAB ONE (16:15)
[2019-09-05] MEDS ORDERED: Ketorolac Tromethamine 60 MG/2 ML VIAL ONE (16:15)
--- NOTE | 2019-09-05 16:48 | CT ---
CT BRAIN NONCONTRAST: 09/05/19 HISTORY: 54-year-old female with headache. FINDINGS: There is no midline shift or any other mass effect. There is no evidence of acute intracranial hemor rhage, large cortical infarct, obstructive hydrocephalus, or extraaxial fluid collection. The calvar ium is intact. 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 There is a small mucous retention cys t at the floor of the left maxillary sinus. Otherwise, the paranasal sinuses and the bilateral tympan omastoid cavities, are clear. No interval change compared to 02/17/14. IMPRESSION: No acute intracranial findings. grady carpenter POS: [facility]
[2019-09-05 16:59] LABS: #Basophils 0.1 thou/uL (0.0-0.2); #Eosinphils 0.3 thou/uL (0.0-0.7); #Lymphocytes 2.4 thou/uL (1.20-3.40); #Monocytes 0.7 thou/uL (0.11-0.59); #Neutrophils 4.5 thou/uL (1.40-6.50); %Basophils 1.1 % (0.0-1.0); %Eosinophils 3.3 % (0.0-10.0); %Lymphocytes 29.7 % (21.0-51.0); %Neutrophils 56.9 % (42.0-75.0); Hemoglobin 12.3 g/dL (12.0-16.0); Mean Corpuscular Hemoglobin 31.1 pg (27.0-31.0); Mean Platelet Volume 6.7 fL (7.4-10.4); Platelet Count 221 thou/uL (130-400); RBC Distribution Width 12.7 % (11.5-14.5); Red Blood Cell (RBC) Count 3.95 mill/uL (4.20-5.40); White Blood Cell (WBC) Count 7.9 thou/uL (4.8-10.8)
[2019-09-05 17:06] LABS: INR-International Normal Ratio 1.7; PTT 28.8 sec (22.9-36.1)
[2019-09-05 17:12] LABS: Anion Gap 15 mmol/L (10-20); BUN (Urea Nitrogen) 9 mg/dL (9.8-20.1); Calc. Creatinine Clearance 0 mL/min (70-130); Calcium 9.3 mg/dL (7.8-10.44); Carbon Dioxide 23 mmol/L (22-29); Chloride 108 mmol/L (98-107); Estimated GFR-MDRD 90; Glucose 187 mg/dL (70-105); Potassium 3.7 mmol/L (3.5-5.1); Sodium 142 mmol/L (136-145)
== END 2019-09-05 17:15 | disposition home or self-care (01) ==
LOC: NAV ERS 15:54
DX: R51 Headache (principal); R11.2 Nausea with vomiting, unspecified; M79.18 Myalgia, other site; Z20.828 Contact with and (suspected) exposure to other viral communicable diseases; E11.9 Type 2 diabetes mellitus without complications; E78.5 Hyperlipidemia, unspecified; I10 Essential (primary) hypertension; J44.9 Chronic obstructive pulmonary disease, unspecified; F41.9 Anxiety disorder, unspecified; F32.9 Major depressive disorder, single episode, unspecified; Z79.899 Other long term (current) drug therapy; Z79.01 Long term (current) use of anticoagulants; Z79.84 Long term (current) use of oral hypoglycemic drugs; Z79.82 Long term (current) use of aspirin
CPT/HCPCS: 36415; 70450; 80048; 85025; 85610; 85730; J1885; Q0162

== ENCOUNTER 2020-03-01 11:40 | Emergency (ER) | payer MEDICARE ==
[2020-03-01] MEDS ORDERED: Acetaminophen 500 MG TAB ONE (12:07)
--- NOTE | 2020-03-01 12:27 | RAD ---
Exam: Chest one view HISTORY:Chest pain Comparison: 02/27/2016, 01/22/2019 FINDINGS: Cardiac silhouette:Cardiomegaly. Stable left-sided defibrillator. Stable sternotomy wires and prosthe tic aortic valve Aorta: Unremarkable Pulmonary vessels: Normal Costophrenic angles: Clear LUNGS: No masses or consolidation. Pneumothorax: None Osseous abnormalities: None IMPRESSION: Cardiomegaly, without evidence of congestive heart failure
[2020-03-01 12:30] LABS: INR-International Normal Ratio 2.2; PTT 34.9 sec (22.9-36.1); Prothrombin Time 25.2 sec (12.0-14.7)
[2020-03-01 12:33] LABS: #Basophils 0.1 thou/uL (0.0-0.2); #Eosinphils 0.2 thou/uL (0.0-0.7); #Lymphocytes 2.1 thou/uL (1.20-3.40); #Monocytes 0.7 thou/uL (0.11-0.59); #Neutrophils 5.9 thou/uL (1.40-6.50); %Basophils 1.3 % (0.0-1.0); %Lymphocytes 22.9 % (21.0-51.0); %Monocytes 7.9 % (0.0-10.0); Hemoglobin 13.7 g/dL (12.0-16.0); Mean Corpuscular Hemoglobin 33.1 pg (27.0-31.0); Mean Platelet Volume 6.7 fL (7.4-10.4); Platelet Count 277 thou/uL (130-400); RBC Distribution Width 12.3 % (11.5-14.5); Red Blood Cell (RBC) Count 4.14 mill/uL (4.20-5.40)
[2020-03-01 12:45] LABS: ALT (SGPT) 19 U/L (8-55); AST (SGOT) 23 U/L (5-34); Albumin 4.1 g/dL (3.5-5.0); Alkaline Phosphatase 57 U/L (40-110); Anion Gap 14 mmol/L (10-20); BUN (Urea Nitrogen) 10 mg/dL (9.8-20.1); Bilirubin, Total 0.6 mg/dL (0.2-1.2); Calc. Creatinine Clearance 0 mL/min (70-130); Calcium 9.6 mg/dL (7.8-10.44); Chloride 104 mmol/L (98-107); Globulin 2.5 g/dL (2.4-3.5); Glucose 111 mg/dL (70-105); Potassium 4.3 mmol/L (3.5-5.1); Protein, Total 6.6 g/dL (6.0-8.3); Sodium 139 mmol/L (136-145)
[2020-03-01 13:13] LABS: Carbon Dioxide 25 mmol/L (22-29)
== END 2020-03-01 14:24 | disposition home or self-care (01) ==
LOC: NAV ERS 11:40
DX: B34.9 Viral infection, unspecified (principal); Z20.822 Contact with and (suspected) exposure to COVID-19; I11.0 Hypertensive heart disease with heart failure; I50.9 Heart failure, unspecified; E11.9 Type 2 diabetes mellitus without complications; E78.5 Hyperlipidemia, unspecified; E78.00 Pure hypercholesterolemia, unspecified; J44.9 Chronic obstructive pulmonary disease, unspecified; Z87.891 Personal history of nicotine dependence; Z79.01 Long term (current) use of anticoagulants; Z79.82 Long term (current) use of aspirin; Z79.899 Other long term (current) drug therapy
CPT/HCPCS: 71045; 80053; 83605; 84484; 85025; 85610; 85730; 87804; 93005

== ENCOUNTER 2020-09-12 15:46 | Outpatient (CLI) | payer MEDICARE ==
[2020-09-12 18:31] LABS: INR-International Normal Ratio 1.9; Prothrombin Time 21.5 sec (12.0-14.7)
[2020-09-12 20:35] LABS: Hemoglobin A1c 6.6 % (4.0-6.0)
[2020-09-12 20:46] LABS: Anion Gap 15 mmol/L (10-20); Cardiac Risk 3.3 (Less than 4.5); Globulin 2.8 g/dL (2.4-3.5); LDL Cholesterol, Calculated 83 mg/dL
[2020-09-12 21:01] LABS: Creatinine, Urine 100.08 mg/dL (47-110); Microalbumin Urine 1.1 mg/dL (0.5-50.0)
[2020-09-12 21:03] LABS: Free T4 (Free Thyroxine) 0.81 ng/dL (0.70-1.48)
[2020-09-12 21:27] LABS: Albumin 4.3 g/dL (3.5-5.0); Chloride 103 mmol/L (98-107); Potassium 4.5 mmol/L (3.5-5.1)
[2020-09-12 21:28] LABS: Calcium 10.2 mg/dL (7.8-10.44); Sodium 140 mmol/L (136-145)
[2020-09-12 21:29] LABS: Glucose 125 mg/dL (70-105); Protein, Total 7.1 g/dL (6.0-8.3); Triglycerides 69 mg/dL (Less than 150)
[2020-09-12 21:30] LABS: Carbon Dioxide 25 mmol/L (22-29)
[2020-09-12 21:32] LABS: Alkaline Phosphatase 69 U/L (40-110); Calc. Creatinine Clearance 0 mL/min (70-130)
[2020-09-12 21:33] LABS: BUN (Urea Nitrogen) 13 mg/dL (9.8-20.1)
[2020-09-12 21:34] LABS: AST (SGOT) 28 U/L (5-34); Cholesterol 141 mg/dl (< 200 Desired); HDL Cholesterol 43 mg/dL (>60 Neg Risk)
[2020-09-12 21:35] LABS: ALT (SGPT) 19 U/L (8-55)
[2020-09-12 23:38] LABS: Thyroid Stimulating Hormone 1.8566 uIU/mL (0.35-4.94)
== END 2020-09-12 15:47 | disposition home or self-care (01) ==
LOC: NAV LABSP 15:46
PROVIDERS: ATTEND Family Medicine
DX: E11.9 Type 2 diabetes mellitus without complications (principal); I48.91 Unspecified atrial fibrillation
CPT/HCPCS: 36415; 80053; 80061; 82043; 83036; 84439; 84443; 85610

== ENCOUNTER 2020-09-28 08:44 | Outpatient (CLI) | payer MEDICARE ==
[2020-09-28 14:48] LABS: INR-International Normal Ratio 1.3; Prothrombin Time 16.1 sec (12.0-14.7)
== END 2020-09-28 08:45 | disposition home or self-care (01) ==
LOC: HPNAV 08:44
PROVIDERS: ATTEND Family Medicine
DX: I48.91 Unspecified atrial fibrillation (principal)
CPT/HCPCS: 36415; 85610

== ENCOUNTER 2020-10-10 16:27 | Emergency (ER) | payer MEDICARE ==
[2020-10-10] MEDS ORDERED: Tetracaine HCl 0.5% Ophth Soln 2 ML Bottle ONE (17:26)
[2020-10-10] MEDS ORDERED: Fluorescein Opthalmic Strip ONE (17:26)
[2020-10-10] MEDS ORDERED: traMADol HCl 50 MG TAB ONE (17:45)
[2020-10-10] MEDS ORDERED: Clindamycin 150 MG CAP ONE (17:46)
== END 2020-10-10 17:52 | disposition home or self-care (01) ==
LOC: NAV ERS 16:27
DX: L02.214 Cutaneous abscess of groin (principal); I11.0 Hypertensive heart disease with heart failure; I50.9 Heart failure, unspecified; I25.2 Old myocardial infarction; E11.9 Type 2 diabetes mellitus without complications; E78.00 Pure hypercholesterolemia, unspecified; J44.9 Chronic obstructive pulmonary disease, unspecified; Z87.891 Personal history of nicotine dependence; Z79.01 Long term (current) use of anticoagulants; Z79.899 Other long term (current) drug therapy; Z79.84 Long term (current) use of oral hypoglycemic drugs
CPT/HCPCS: 99283

== ENCOUNTER 2020-12-19 07:41 | Emergency (ER) | payer MEDICARE ==
[2020-12-19 08:16] LABS: Bilirubin Small (Negative); Blood, Urine Small (Negative); Clarity Slightly Cloudy (Clear); Glucose, Urine (Dipstick) Negative (Negative); Ketone, Urine 15 mg/dL (Negative); Leukocyte Large (Negative); Nitrite Negative (Negative); Protein, Urine (Dipstick) 30 mg/dL (Neg-Trace); Specific Gravity, Urine 1.025 (1.005-1.030); pH, Urine 5.5 (5.0-9.0)
[2020-12-19 08:28] LABS: Bacteria/HPF 1+ HPF (None Seen)
[2020-12-19 08:29] LABS: Calcium Oxalate Crystals 1+ HPF (None Seen); Trichomonas/HPF 1+ HPF (None Seen)
[2020-12-19] MEDS ORDERED: Cephalexin 250 MG CAP ONE (08:47)
== END 2020-12-19 09:03 | disposition home or self-care (01) ==
LOC: NAV ERS 07:41
DX: N39.0 Urinary tract infection, site not specified (principal); G89.29 Other chronic pain; M54.50 Low back pain, unspecified; I11.0 Hypertensive heart disease with heart failure; I50.9 Heart failure, unspecified; I25.2 Old myocardial infarction; E11.9 Type 2 diabetes mellitus without complications; E78.5 Hyperlipidemia, unspecified; E78.00 Pure hypercholesterolemia, unspecified; J44.9 Chronic obstructive pulmonary disease, unspecified; Z87.891 Personal history of nicotine dependence; Z79.01 Long term (current) use of anticoagulants; Z79.82 Long term (current) use of aspirin; Z79.899 Other long term (current) drug therapy; Z79.84 Long term (current) use of oral hypoglycemic drugs
CPT/HCPCS: 81003; 81015; 87086; 99284

== ENCOUNTER 2021-01-26 10:49 | Emergency (ER) | payer MEDICARE ==
[2021-01-26 11:28] LABS: #Basophils 0.1 thou/uL (0.0-0.2); #Eosinphils 0.2 thou/uL (0.0-0.7); #Lymphocytes 2.6 thou/uL (1.20-3.40); #Neutrophils 4.9 thou/uL (1.40-6.50); %Basophils 1.2 % (0.0-1.0); %Eosinophils 2.5 % (0.0-10.0); %Monocytes 11.4 % (0.0-10.0); %Neutrophils 55.9 % (42.0-75.0); Hemoglobin 13.4 g/dL (12.0-16.0); Mean Corpuscular HGB CONC 31.1 g/dL (32.0-36.0); Mean Corpuscular Hemoglobin 31.7 pg (27.0-31.0); Mean Platelet Volume 6.6 fL (7.4-10.4); Platelet Count 284 thou/uL (130-400); RBC Distribution Width 12.5 % (11.5-14.5); Red Blood Cell (RBC) Count 4.23 mill/uL (4.20-5.40); White Blood Cell (WBC) Count 8.8 thou/uL (4.8-10.8)
[2021-01-26 11:44] LABS: ALT (SGPT) 27 U/L (8-55); AST (SGOT) 22 U/L (5-34); Alkaline Phosphatase 63 U/L (40-110); Anion Gap 13 mmol/L (10-20); BUN (Urea Nitrogen) 15 mg/dL (9.8-20.1); Bilirubin, Total 0.5 mg/dL (0.2-1.2); Calc. Creatinine Clearance 0 mL/min (70-130); Calcium 10.5 mg/dL (7.8-10.44); Carbon Dioxide 26 mmol/L (22-29); Chloride 104 mmol/L (98-107); Globulin 3.5 g/dL (2.4-3.5); Glucose 99 mg/dL (70-105); Lipase 71 U/L (8-78); Potassium 4.5 mmol/L (3.5-5.1); Protein, Total 7.5 g/dL (6.0-8.3); Sodium 138 mmol/L (136-145)
[2021-01-26 12:04] LABS: Prothrombin Time 41.3 sec (12.0-14.7)
[2021-01-26 12:23] LABS: INR-International Normal Ratio 4.2
== END 2021-01-26 12:38 | disposition home or self-care (01) ==
LOC: NAV ERS 10:49
DX: T82.191A Other mechanical complication of cardiac pulse generator (battery), initial encounter (principal); R07.89 Other chest pain; I11.0 Hypertensive heart disease with heart failure; I50.9 Heart failure, unspecified; I25.2 Old myocardial infarction; E11.9 Type 2 diabetes mellitus without complications; E78.00 Pure hypercholesterolemia, unspecified; J44.9 Chronic obstructive pulmonary disease, unspecified; Z87.891 Personal history of nicotine dependence; Z79.84 Long term (current) use of oral hypoglycemic drugs; Z79.899 Other long term (current) drug therapy; Z79.82 Long term (current) use of aspirin; Z79.01 Long term (current) use of anticoagulants
CPT/HCPCS: 71045; 80053; 83690; 84484; 85025; 85610; 93005

== ENCOUNTER 2021-05-13 18:10 | Emergency (ER) | payer MEDICARE ==
[2021-05-13 18:51] LABS: #Basophils 0.1 thou/uL (0.0-0.2); #Eosinphils 0.2 thou/uL (0.0-0.7); #Lymphocytes 1.6 thou/uL (1.20-3.40); #Monocytes 0.4 thou/uL (0.11-0.59); #Neutrophils 7.3 thou/uL (1.40-6.50); %Basophils 1.1 % (0.0-1.0); %Eosinophils 1.7 % (0.0-10.0); %Lymphocytes 16.7 % (21.0-51.0); %Monocytes 3.9 % (0.0-10.0); %Neutrophils 76.6 % (42.0-75.0); Hemoglobin 12.7 g/dL (12.0-16.0); Mean Corpuscular HGB CONC 32.3 g/dL (32.0-36.0); Mean Corpuscular Hemoglobin 31.5 pg (27.0-31.0); Mean Corpuscular Volume 97.4 fL (78.0-98.0); Mean Platelet Volume 6.7 fL (7.4-10.4); Platelet Count 130 thou/uL (130-400); RBC Distribution Width 11.9 % (11.5-14.5); Red Blood Cell (RBC) Count 4.03 mill/uL (4.20-5.40); White Blood Cell (WBC) Count 9.6 thou/uL (4.8-10.8)
[2021-05-13] MEDS ORDERED: Sodium Chloride 0.9% 1,000 ML ONE (18:53)
[2021-05-13] MEDS ORDERED: Ondansetron PF 4 MG/2 ML Vial ONE (18:53)
[2021-05-13 19:02] LABS: ALT (SGPT) 29 U/L (8-55); AST (SGOT) 50 U/L (5-34); Albumin 4.3 g/dL (3.5-5.0); Alkaline Phosphatase 58 U/L (40-110); Anion Gap 16 mmol/L (10-20); BUN (Urea Nitrogen) 16 mg/dL (9.8-20.1); Bilirubin, Total 0.7 mg/dL (0.2-1.2); Calc. Creatinine Clearance 0 mL/min (70-130); Calcium 10.5 mg/dL (7.8-10.44); Carbon Dioxide 22 mmol/L (22-29); Chloride 104 mmol/L (98-107); Globulin 3.4 g/dL (2.4-3.5); Glucose 129 mg/dL (70-105); Lipase 55 U/L (8-78); Potassium 4.6 mmol/L (3.5-5.1); Protein, Total 7.7 g/dL (6.0-8.3); Sodium 137 mmol/L (136-145)
[2021-05-13] MEDS ORDERED: Morphine 4 MG/ML VIAL ONE ×2 (19:18→20:05)
[2021-05-13 19:38] LABS: CKMB 2.3 ng/mL (0-6.6)
[2021-05-13 19:51] LABS: INR-International Normal Ratio 1.6; Prothrombin Time 19.5 sec (12.0-14.7)
[2021-05-13] MEDS ORDERED: Nitroglycerin 2% Ointment 1 INCH/1 GM Packet ONE ×2 (19:51→20:10)
[2021-05-13] MEDS ORDERED: Aspirin Chewable 81 MG TAB ONE (19:51)
[2021-05-13] MEDS ORDERED: Nitroglycerin 0.4 MG TAB (25 Tab Bottle) ONE (19:55)
== END 2021-05-13 20:26 | disposition short-term general hospital (02) ==
LOC: NAV ERS 18:10
DX: I21.3 ST elevation (STEMI) myocardial infarction of unspecified site (principal); R10.12 Left upper quadrant pain; R10.32 Left lower quadrant pain; R11.2 Nausea with vomiting, unspecified; R79.89 Other specified abnormal findings of blood chemistry; E11.9 Type 2 diabetes mellitus without complications; I11.0 Hypertensive heart disease with heart failure; I50.9 Heart failure, unspecified; I25.2 Old myocardial infarction; E78.5 Hyperlipidemia, unspecified; J44.9 Chronic obstructive pulmonary disease, unspecified; E78.00 Pure hypercholesterolemia, unspecified; Z79.01 Long term (current) use of anticoagulants; Z79.82 Long term (current) use of aspirin; Z79.890 Hormone replacement therapy; Z79.899 Other long term (current) drug therapy; Z87.891 Personal history of nicotine dependence
CPT/HCPCS: 71045; 80053; 82553; 83690; 84484; 85025; 85610; 85730; 93005; 94760; 96374; 96375; 96376; J2270; J2405; J7050

== ENCOUNTER 2021-06-26 15:24 | Emergency (ER) | payer MEDICARE ==
[2021-06-26] MEDS ORDERED: methylPREDNISolone Sod Succ/PF 125 MG/2 ML VIAL ONE (15:53)
[2021-06-26] MEDS ORDERED: Ketorolac Tromethamine 30 MG/ML VIAL ONE (15:53)
[2021-06-26 16:26] LABS: #Eosinphils 0.2 thou/uL (0.0-0.7); #Lymphocytes 1.9 thou/uL (1.20-3.40); #Monocytes 0.7 thou/uL (0.11-0.59); #Neutrophils 5.3 thou/uL (1.40-6.50); %Basophils 0.4 % (0.0-1.0); %Eosinophils 2.1 % (0.0-10.0); %Lymphocytes 23.7 % (21.0-51.0); %Monocytes 8.5 % (0.0-10.0); %Neutrophils 65.3 % (42.0-75.0); Hemoglobin 11.5 g/dL (12.0-16.0); Mean Corpuscular HGB CONC 29.2 g/dL (32.0-36.0); Mean Corpuscular Hemoglobin 30.5 pg (27.0-31.0); Mean Platelet Volume 6.4 fL (7.4-10.4); Platelet Count 294 thou/uL (130-400); RBC Distribution Width 13.3 % (11.5-14.5); Red Blood Cell (RBC) Count 3.79 mill/uL (4.20-5.40); White Blood Cell (WBC) Count 8.2 thou/uL (4.8-10.8)
[2021-06-26 16:37] LABS: Clarity Hazy (Clear); Leukocyte Moderate (Negative); Nitrite Negative (Negative); Protein, Urine (Dipstick) 30 mg/dL (Neg-Trace); Specific Gravity, Urine 1.022 (1.002-1.036); pH, Urine 5.5 (5.0-9.0)
[2021-06-26 16:38] LABS: Bacteria/HPF Rare-Few HPF (None Seen); Bilirubin Negative (Negative); Blood, Urine Trace (Negative); Calcium Oxalate Crystals 2+ HPF (None Seen); Glucose, Urine (Dipstick) Negative (Negative); Ketone, Urine Negative (Negative); RBC/HPF 0-3 HPF (0-3); Squamous Epithelial 0-3 HPF (0-3); Trichomonas/HPF 3+ HPF (None Seen); Urobilinogen 0.2 mg/dL (Less than 2)
[2021-06-26 16:48] LABS: ALT (SGPT) 37 U/L (8-55); AST (SGOT) 36 U/L (5-34); Albumin 3.8 g/dL (3.5-5.0); Alkaline Phosphatase 72 U/L (40-110); Anion Gap 19 mmol/L (10-20); BUN (Urea Nitrogen) 12 mg/dL (9.8-20.1); Bilirubin, Total 0.4 mg/dL (0.2-1.2); Calc. Creatinine Clearance 0 mL/min (70-130); Calcium 9.4 mg/dL (7.8-10.44); Carbon Dioxide 20 mmol/L (22-29); Chloride 108 mmol/L (98-107); Globulin 2.9 g/dL (2.4-3.5); Glucose 125 mg/dL (70-105); Potassium 4.5 mmol/L (3.5-5.1); Protein, Total 6.7 g/dL (6.0-8.3); Sodium 142 mmol/L (136-145)
[2021-06-26 17:07] LABS: CKMB 1.7 ng/mL (0-6.6)
[2021-06-26] MEDS ORDERED: Aspirin Chewable 81 MG TAB ONE (17:17)
[2021-06-26 17:59] LABS: SARS-CoV-2 NAA Rapid Test Not Detected (NotDetected)
[2021-06-26] MEDS ORDERED: Acetaminophen 500 MG TAB ONE (18:39)
== END 2021-06-26 19:32 | disposition short-term general hospital (02) ==
LOC: NAV ERS 15:24
DX: J44.1 Chronic obstructive pulmonary disease with (acute) exacerbation (principal); I11.0 Hypertensive heart disease with heart failure; I50.9 Heart failure, unspecified; R77.8 Other specified abnormalities of plasma proteins; I25.2 Old myocardial infarction; E11.9 Type 2 diabetes mellitus without complications; E78.5 Hyperlipidemia, unspecified; I25.10 Atherosclerotic heart disease of native coronary artery without angina pectoris; E78.00 Pure hypercholesterolemia, unspecified; Z20.822 Contact with and (suspected) exposure to COVID-19; Z87.891 Personal history of nicotine dependence; Z95.5 Presence of coronary angioplasty implant and graft
CPT/HCPCS: 71045; 80053; 82553; 83605; 83880; 84484; 85025; 87804 ×2; 93005; 94760; 96374; 96375; 99285; U0002; 81003; 81015; J1885; J2930; J7620

== ENCOUNTER 2022-04-06 10:10 | Emergency (ER) | payer MEDICARE, OTHER ==
[2022-04-06] MEDS ORDERED: Lidocaine 1% (PF) 30 ML VIAL ONE (10:41)
[2022-04-06] MEDS ORDERED: Clindamycin 150 MG CAP ONE (11:17)
== END 2022-04-06 11:15 | disposition home or self-care (01) ==
LOC: NAV ERS 10:10
DX: S50.01XA Contusion of right elbow, initial encounter (principal); S70.01XA Contusion of right hip, initial encounter; S80.01XA Contusion of right knee, initial encounter; L02.214 Cutaneous abscess of groin; I11.0 Hypertensive heart disease with heart failure; I50.9 Heart failure, unspecified; I25.2 Old myocardial infarction; E11.9 Type 2 diabetes mellitus without complications; E78.00 Pure hypercholesterolemia, unspecified; J44.9 Chronic obstructive pulmonary disease, unspecified; I09.81 Rheumatic heart failure; G47.00 Insomnia, unspecified; W07.XXXA Fall from chair, initial encounter; Z95.5 Presence of coronary angioplasty implant and graft; Z87.891 Personal history of nicotine dependence; Z79.84 Long term (current) use of oral hypoglycemic drugs; Z79.899 Other long term (current) drug therapy
CPT/HCPCS: 10060; 87070; 87205; J2001

== ENCOUNTER 2022-09-21 16:27 | Emergency (ER) | payer OTHER ==
[2022-09-21] MEDS ORDERED: Acetaminophen 500 MG TAB ONE (16:48)
[2022-09-21] MEDS ORDERED: methylPREDNISolone Sod Succ/PF 125 MG/2 ML VIAL ONE (16:50)
== END 2022-09-21 17:10 | disposition home or self-care (01) ==
LOC: NAV ERS 16:27
DX: U07.1 COVID-19 (principal); J44.1 Chronic obstructive pulmonary disease with (acute) exacerbation; I11.0 Hypertensive heart disease with heart failure; I50.9 Heart failure, unspecified; E11.9 Type 2 diabetes mellitus without complications; E78.00 Pure hypercholesterolemia, unspecified; Z87.891 Personal history of nicotine dependence; Z79.84 Long term (current) use of oral hypoglycemic drugs; Z79.899 Other long term (current) drug therapy; Z79.01 Long term (current) use of anticoagulants
CPT/HCPCS: 87635; 96372; 99284; J2930

== ENCOUNTER 2022-10-07 07:05 | Emergency (ER) | payer MEDICARE, OTHER ==
[2022-10-07] MEDS ORDERED: Acetaminophen/Codeine 30-300mg Tablet ONE (07:38)
[2022-10-07] MEDS ORDERED: Oseltamivir 75 MG CAP ONE (07:38)
== END 2022-10-07 07:45 | disposition home or self-care (01) ==
LOC: NAV ERS 07:05
DX: J11.1 Influenza due to unidentified influenza virus with other respiratory manifestations (principal); I11.0 Hypertensive heart disease with heart failure; I50.9 Heart failure, unspecified; I25.2 Old myocardial infarction; E11.9 Type 2 diabetes mellitus without complications; J44.9 Chronic obstructive pulmonary disease, unspecified; G47.00 Insomnia, unspecified; E78.00 Pure hypercholesterolemia, unspecified; Z95.5 Presence of coronary angioplasty implant and graft; Z87.891 Personal history of nicotine dependence; Z79.82 Long term (current) use of aspirin; Z79.01 Long term (current) use of anticoagulants; Z79.84 Long term (current) use of oral hypoglycemic drugs; Z79.899 Other long term (current) drug therapy; Z86.16 Personal history of COVID-19
CPT/HCPCS: 99283

== ENCOUNTER 2023-04-09 16:16 | Emergency (ER) | payer OTHER ==
[2023-04-09] MEDS ORDERED: Aspirin Chewable 81 MG TAB ONE (16:46)
[2023-04-09] MEDS ORDERED: Morphine 2 MG/ML VIAL ONE (16:47)
[2023-04-09] MEDS ORDERED: Ondansetron PF 4 MG/2 ML Vial ONE (16:47)
[2023-04-09 16:59] LABS: #Basophils 0.1 thou/uL (0.0-0.2); #Eosinphils 0.3 thou/uL (0.0-0.7); #Lymphocytes 2.2 thou/uL (1.20-3.40); #Monocytes 0.6 thou/uL (0.11-0.59); #Neutrophils 3.9 thou/uL (1.40-6.50); %Basophils 1.5 % (0.0-1.0); %Eosinophils 3.6 % (0.0-10.0); %Lymphocytes 30.7 % (21.0-51.0); %Neutrophils 55.2 % (42.0-75.0); Hematocrit 38.2 % (36.0-47.0); Hemoglobin 12.2 g/dL (12.0-16.0); Mean Corpuscular HGB CONC 31.9 g/dL (32.0-36.0); Mean Corpuscular Hemoglobin 31.2 pg (27.0-31.0); Mean Platelet Volume 6.8 fL (7.4-10.4); Platelet Count 172 10x3/uL (130-400); RBC Distribution Width 13.1 % (11.5-14.5); White Blood Cell (WBC) Count 7.1 10x3/uL (4.8-10.8)
[2023-04-09 17:04] LABS: D-Dimer Test 0.45 mcg/mL (0.27-0.43)
[2023-04-09 17:09] LABS: ALT (SGPT) 13 U/L (8-55); AST (SGOT) 21 U/L (5-34); Albumin 3.7 g/dL (3.5-5.0); Alkaline Phosphatase 68 U/L (40-110); Anion Gap 12 mmol/L (10-20); BUN (Urea Nitrogen) 31 mg/dL (9.8-20.1); Bilirubin, Total 0.5 mg/dL (0.2-1.2); Calc. Creatinine Clearance 0 mL/min (70-130); Calcium 9.6 mg/dL (7.8-10.44); Carbon Dioxide 22 mmol/L (22-29); Chloride 108 mmol/L (98-107); Estimated GFR 40; Globulin 2.6 g/dL (2.4-3.5); Glucose 133 mg/dL (70-105); Lipase 245 U/L (8-78); Potassium 4.8 mmol/L (3.5-5.1); Protein, Total 6.3 g/dL (6.0-8.3); Sodium 137 mmol/L (136-145)
[2023-04-09 17:13] LABS: INR-International Normal Ratio 1.5; Prothrombin Time 18.6 sec (12.0-14.7)
[2023-04-09 17:14] LABS: PTT 34.5 sec (22.9-36.1)
[2023-04-09 17:19] LABS: Digoxin 1.05 ng/mL (0.8-2.0)
[2023-04-09 17:51] LABS: Troponin I 0.089 ng/mL (< 0.028)
[2023-04-09] MEDS ORDERED: Acetaminophen 500 MG TAB ONE (18:01)
[2023-04-09 19:14] LABS: Bilirubin Negative (Negative); Blood, Urine Negative (Negative); Glucose, Urine (Dipstick) 500 mg/dL (Negative); Ketone, Urine Negative (Negative); Leukocyte Negative (Negative); Nitrite Negative (Negative); Protein, Urine (Dipstick) Negative (Neg-Trace); Urobilinogen 0.2 mg/dL (Less than 2)
[2023-04-09 19:20] LABS: Clarity Hazy (Clear)
[2023-04-09 19:26] LABS: CAUTI Indications for Culture Pelvic or flank pain; Squamous Epithelial 0-3 HPF (0-3); WBC/HPF 0-3 HPF (0-3)
[2023-04-09 19:27] LABS: Urine Culture Reflex No No
[2023-04-09 20:19] LABS: Troponin I 0.089 ng/mL (< 0.028)
== END 2023-04-09 22:56 | disposition short-term general hospital (02) ==
LOC: NAV ERS 16:16
DX: R07.9 Chest pain, unspecified (principal); R79.89 Other specified abnormal findings of blood chemistry; R93.1 Abnormal findings on diagnostic imaging of heart and coronary circulation; E11.9 Type 2 diabetes mellitus without complications; E78.00 Pure hypercholesterolemia, unspecified; I11.0 Hypertensive heart disease with heart failure; I50.9 Heart failure, unspecified; J44.9 Chronic obstructive pulmonary disease, unspecified; Z87.891 Personal history of nicotine dependence; Z79.82 Long term (current) use of aspirin; Z79.899 Other long term (current) drug therapy
CPT/HCPCS: 71045; 80053; 80162; 81001; 83690; 83880; 84484; 85025; 85379; 85610; 85730; 93005; 96374; 96375; J2272; J2405

== ENCOUNTER 2023-05-20 22:14 | Emergency (ER) | payer MEDICARE, OTHER ==
[2023-05-20] MEDS ORDERED: Aspirin Chewable 81 MG TAB ONE (22:52)
[2023-05-20] MEDS ORDERED: methylPREDNISolone Sod Succ/PF 125 MG/2 ML VIAL ONE (22:52)
[2023-05-20] MEDS ORDERED: Ketorolac Tromethamine 30 MG (1 mL) VIAL ONE (22:52)
[2023-05-20 23:16] LABS: Influenza A by NAA Not Detected (NotDetected); Influenza B by NAA Not Detected (NotDetected); SARS-CoV-2 NAA Rapid Test Not Detected (NotDetected)
[2023-05-20 23:23] LABS: Hematocrit 41.9 % (36.0-47.0); Hemoglobin 13.5 g/dL (12.0-16.0); INR-International Normal Ratio 2.2; Mean Corpuscular HGB CONC 32.3 g/dL (32.0-36.0); Mean Corpuscular Hemoglobin 32.4 pg (27.0-31.0); Prothrombin Time 24.4 sec (12.0-14.7); Red Blood Cell (RBC) Count 4.18 mill/uL (4.20-5.40); White Blood Cell (WBC) Count 8.1 10x3/uL (4.8-10.8)
[2023-05-20 23:24] LABS: #Basophils 0.1 thou/uL (0.0-0.2); #Eosinphils 0.3 thou/uL (0.0-0.7); #Lymphocytes 1.1 thou/uL (1.20-3.40); #Monocytes 1.3 thou/uL (0.11-0.59); #Neutrophils 5.3 thou/uL (1.40-6.50); %Basophils 1.8 % (0.0-1.0); %Eosinophils 3.9 % (0.0-10.0); %Lymphocytes 13.5 % (21.0-51.0); %Monocytes 15.8 % (0.0-10.0); Manual Diff?? NO; Mean Platelet Volume 7.4 fL (7.4-10.4); Platelet Count 198 10x3/uL (130-400)
[2023-05-20 23:26] LABS: D-Dimer Test 0.42 mcg/mL (0.27-0.43)
[2023-05-20 23:27] LABS: Troponin I 0.066 ng/mL (< 0.028)
[2023-05-20] MEDS ORDERED: Guaifenesin DM 100-10/5 ML UDCUP ONE (23:27)
[2023-05-20 23:31] LABS: BUN (Urea Nitrogen) 24 mg/dL (9.8-20.1); Calc. Creatinine Clearance 0 mL/min (70-130); Calcium 9.4 mg/dL (7.6-10.4); Carbon Dioxide 18 mmol/L (22-29); Chloride 113 mmol/L (98-107); Estimated GFR 38; Glucose 161 mg/dL (70-105); Potassium 4.6 mmol/L (3.5-5.1); Sodium 138 mmol/L (136-145)
[2023-05-20 23:32] LABS: ALT (SGPT) 25 U/L (8-55); AST (SGOT) 33 U/L (5-34); Albumin 3.8 g/dL (3.5-5.0); Alkaline Phosphatase 60 U/L (40-110); Bilirubin, Total 0.6 mg/dL (0.2-1.2); Globulin 3.3 g/dL (2.4-3.5); Protein, Total 7.1 g/dL (6.0-8.3)
[2023-05-20 23:33] LABS: Anion Gap 12 mmol/L (10-20)
[2023-05-20] MEDS ORDERED: Ipratropium/Albuterol 3 ML NEB ONE (23:55)
[2023-05-21 00:02] LABS: Digoxin 1.07 ng/mL (0.8-2.0)
== END 2023-05-21 01:20 | disposition short-term general hospital (02) ==
LOC: NAV ERS 22:14
DX: J20.9 Acute bronchitis, unspecified (principal); J44.1 Chronic obstructive pulmonary disease with (acute) exacerbation; I11.0 Hypertensive heart disease with heart failure; I50.9 Heart failure, unspecified; R93.1 Abnormal findings on diagnostic imaging of heart and coronary circulation; E11.9 Type 2 diabetes mellitus without complications; Z87.891 Personal history of nicotine dependence
CPT/HCPCS: 0240U; 71045; 80053; 80162; 83605; 83880; 84484; 85025; 85379; 85610; 87040; 93005; 96374; 96375; J1885; J2930; J7620

== ENCOUNTER 2023-12-07 11:20 | Emergency (ER) | payer MEDICARE, OTHER ==
[2023-12-07] MEDS ORDERED: Ondansetron ODT 4 MG TAB ONE (11:54)
[2023-12-07] MEDS ORDERED: Acetaminophen 325 MG TAB ONE (11:54)
== END 2023-12-07 12:25 | disposition home or self-care (01) ==
LOC: NAV ERS 11:20
DX: B34.9 Viral infection, unspecified (principal); I11.0 Hypertensive heart disease with heart failure; I50.9 Heart failure, unspecified; E11.9 Type 2 diabetes mellitus without complications; J44.0 Chronic obstructive pulmonary disease with (acute) lower respiratory infection; Z87.891 Personal history of nicotine dependence
CPT/HCPCS: 99283; Q0162

== ENCOUNTER 2024-02-14 18:05 | Emergency (ER) | payer MEDICARE | END 2024-02-14 19:27 | disposition home or self-care (01) | LOC: NAV ERS 18:05 | DX: G89.29 Other chronic pain (principal); I11.0 Hypertensive heart disease with heart failure; I50.9 Heart failure, unspecified; I25.2 Old myocardial infarction; E11.9 Type 2 diabetes mellitus without complications; E78.5 Hyperlipidemia, unspecified; Z95.5 Presence of coronary angioplasty implant and graft; Z87.891 Personal history of nicotine dependence | CPT/HCPCS: 87428; 99284 ==

== ENCOUNTER 2024-03-15 13:52 | Emergency (ER) | payer MEDICARE, SELFPAY ==
[2024-03-15 14:28] LABS: #Basophils 0.1 thou/uL (0.0-0.2); #Eosinophils 0.5 thou/uL (0.0-0.7); #Lymphocytes 1.7 thou/uL (1.20-3.40); #Monocytes 1.3 thou/uL (0.11-0.59); #Neutrophils 9.2 thou/uL (1.40-6.50); %Basophils 0.7 % (0.0-1.0); %Eosinophils 3.9 % (0.0-10.0); %Lymphocytes 13.2 % (21.0-51.0); %Monocytes 10.4 % (0.0-10.0); %Neutrophils 71.8 % (42.0-75.0); Hematocrit 44.8 % (36.0-47.0); Hemoglobin 13.7 g/dL (12.0-16.0); Mean Corpuscular HGB CONC 30.5 g/dL (32.0-36.0); Mean Corpuscular Hemoglobin 29.8 pg (27.0-31.0); Mean Corpuscular Volume 97.5 fl (78.0-98.0); Mean Platelet Volume 6.4 fL (7.4-10.4); Platelet Count 254 10x3/uL (130-400); RBC Distribution Width 12.9 % (11.5-14.5); Red Blood Cell (RBC) Count 4.59 mill/uL (4.20-5.40); White Blood Cell (WBC) Count 12.7 10x3/uL (4.8-10.8)
[2024-03-15 15:00] LABS: INR-International Normal Ratio 1.6; PTT 28.8 sec (22.9-36.1); Prothrombin Time 19.4 sec (12.0-14.7)
[2024-03-15 15:04] LABS: D-Dimer Test 0.4 mcg/mL (0.27-0.43)
[2024-03-15 15:12] LABS: Alkaline Phosphatase 67 U/L (40-110); Anion Gap 10 mmol/L (10-20); BUN (Urea Nitrogen) 22 mg/dL (9.8-20.1); Calcium 9.7 mg/dL (7.8-10.44); Carbon Dioxide 21 mmol/L (22-29); Chloride 109 mmol/L (98-107); Glucose 194 mg/dL (70-105); Potassium 4.4 mmol/L (3.5-5.1); Sodium 136 mmol/L (136-145)
[2024-03-15 15:32] LABS: AST (SGOT) 16 U/L (11-34); Calc. Creatinine Clearance 0 mL/min (70-130); Estimated GFR 51
[2024-03-15 15:33] LABS: ALT (SGPT) 18 U/L (8-55)
[2024-03-15 15:57] LABS: Albumin 3.5 g/dL (3.1-4.5); Bilirubin, Total 0.4 mg/dL (0.3-1.2); Globulin 2.7 g/dL (2.4-3.5); Protein, Total 6.4 g/dL (6.0-8.3)
[2024-03-15 16:10] LABS: Bilirubin Negative (Negative); Blood, Urine Negative (Negative); Clarity Clear (Clear); Glucose, Urine (Dipstick) >=1000 mg/dL (Negative); Ketone, Urine Negative (Negative); Leukocyte Negative (Negative); Nitrite Negative (Negative); Protein, Urine (Dipstick) 30 mg/dL (Neg-Trace); Specific Gravity, Urine 1.015 (1.005-1.030); Urobilinogen 0.2 mg/dL (Less than 2)
[2024-03-15 16:14] LABS: Amphetamine Not Detected (NotDetected); Barbiturates Screen Not Detected (NotDetected); Benzodiazepine Screen Not Detected (NotDetected); Cocaine Metabolite Screen Not Detected (NotDetected); Methadone Not Detected (NotDetected); Methamphetamine Not Detected (NotDetected); Opiate Screen Detected (NotDetected); Oxycodone Screen Not Detected (NotDetected); Phencyclidine (PCP) Not Detected (NotDetected); THC/Cannabinoid Screen Not Detected (NotDetected); Tricyclic Screen Not Detected (NotDetected)
[2024-03-15 16:16] LABS: CAUTI Indications for Culture Fever or rigors; RBC/HPF None Seen HPF (0-3); Squamous Epithelial 0-3 HPF (0-3); WBC/HPF None Seen HPF (0-3)
[2024-03-15 16:17] LABS: Urine Culture Reflex No No
== END 2024-03-15 16:45 | disposition home or self-care (01) ==
LOC: NAV ERS 13:52
DX: U07.1 COVID-19 (principal); I11.0 Hypertensive heart disease with heart failure; I50.9 Heart failure, unspecified; E11.40 Type 2 diabetes mellitus with diabetic neuropathy, unspecified; J44.9 Chronic obstructive pulmonary disease, unspecified; I25.2 Old myocardial infarction; E78.00 Pure hypercholesterolemia, unspecified; I48.91 Unspecified atrial fibrillation; Z79.82 Long term (current) use of aspirin; Z79.899 Other long term (current) drug therapy; Z79.01 Long term (current) use of anticoagulants
CPT/HCPCS: 71045; 80053; 80306; 81001; 83880; 85025; 85379; 85610; 85730; 87070; 87205; 87428; 93005; 94760; 96374

== ENCOUNTER 2024-03-24 09:03 | Emergency (ER) | payer MEDICARE, SELFPAY ==
[2024-03-24 09:47] LABS: Hematocrit 51.6 % (36.0-47.0); Hemoglobin 16.2 g/dL (12.0-16.0); Mean Corpuscular HGB CONC 31.4 g/dL (32.0-36.0); Mean Corpuscular Hemoglobin 29.7 pg (27.0-31.0); Mean Corpuscular Volume 94.8 fl (78.0-98.0); Mean Platelet Volume 7.1 fL (7.4-10.4); Platelet Count 281 10x3/uL (130-400); RBC Distribution Width 11.8 % (11.5-14.5); Red Blood Cell (RBC) Count 5.45 mill/uL (4.20-5.40); White Blood Cell (WBC) Count 22.7 10x3/uL (4.8-10.8)
[2024-03-24 09:50] LABS: Manual Diff?? YES
[2024-03-24 09:51] LABS: MDiff Complete? YES
[2024-03-24 09:56] LABS: Troponin I 0.166 ng/mL (< 0.028)
[2024-03-24 10:00] LABS: Band 1 % (5-11); Eosinophils 1 % (0-10); Lymphocytes 12 % (21-51); Metamyelocyte 1 % (0-0); Monocytes 1 % (0-10); Neutrophil 84 % (42-75)
[2024-03-24 10:01] LABS: Platelet Adequacy Comment Appears Adequate; Toxic Granulation SLIGHT; Vacuoles SLIGHT
[2024-03-24 10:14] LABS: Bilirubin Negative (Negative); Blood, Urine Negative (Negative); Clarity Clear (Clear); Glucose, Urine (Dipstick) 500 mg/dL (Negative); Ketone, Urine Negative (Negative); Leukocyte Negative (Negative); Nitrite Negative (Negative); Protein, Urine (Dipstick) Trace mg/dL (Neg-Trace); Urobilinogen 0.2 mg/dL (Less than 2)
[2024-03-24 10:24] LABS: INR-International Normal Ratio 2.7; Prothrombin Time 29.2 sec (12.0-14.7)
[2024-03-24 10:31] LABS: Bacteria/HPF None Seen HPF (None Seen); CAUTI Indications for Culture Alt mental st,lethar; RBC/HPF 0-3 HPF (0-3); Squamous Epithelial None Seen HPF (0-3); WBC/HPF None Seen HPF (0-3)
[2024-03-24 10:31] LABS: Anion Gap 14 mmol/L (10-20); BUN (Urea Nitrogen) 45 mg/dL (9.8-20.1); Calc. Creatinine Clearance 0 mL/min (70-130); Calcium 9.9 mg/dL (7.8-10.44); Carbon Dioxide 18 mmol/L (22-29); Chloride 104 mmol/L (98-107); Estimated GFR 46; Glucose 355 mg/dL (70-105); Magnesium 2.8 mg/dL (1.6-2.6); Potassium 4.9 mmol/L (3.5-5.1); Sodium 131 mmol/L (136-145)
[2024-03-24 10:32] LABS: Urine Culture Reflex No No
== END 2024-03-24 13:15 | disposition home or self-care (01) ==
LOC: NAV ERS 09:03
DX: R06.02 Shortness of breath (principal); I25.10 Atherosclerotic heart disease of native coronary artery without angina pectoris; J44.9 Chronic obstructive pulmonary disease, unspecified; I11.0 Hypertensive heart disease with heart failure; I50.9 Heart failure, unspecified; N19 Unspecified kidney failure; Z79.01 Long term (current) use of anticoagulants
CPT/HCPCS: 36415; 71046; 80048; 81001; 83735; 83880; 84484; 85025; 85610; 93005